=== PATIENT | female | born 1965 | race Caucasian/White ===

== ENCOUNTER 2022-03-16 10:18 | Outpatient (REF) | payer OTHER, SELFPAY ==
[2022-03-16 11:11] LABS: COVID-19 Test Negative (Negative); IDNOW Serial# 08D9AD1C
== END 2022-03-16 10:19 | disposition home or self-care (01) ==
LOC: HO.LAB 10:18
PROVIDERS: Visit Provider Internal Medicine
DX: Z20.822 Contact with and (suspected) exposure to COVID-19 (principal)
CPT/HCPCS: 87635; C9803

== ENCOUNTER 2024-06-25 15:30 | Outpatient (REF) | payer OTHER, SELFPAY ==
[2024-06-25 17:43] LABS: Free T4 (Free Thyroxine) 1.13 ng/dL (0.71-1.85); Thyroid Stimulating Hormone 0.34 uIU/mL (0.32-4.0)
[2024-06-27 00:44] LABS: Triiodothyronine T3 Free 3.4 pg/mL (2.3-4.2)
== END 2024-06-25 15:31 | disposition home or self-care (01) ==
LOC: HO.LAB 15:30
PROVIDERS: PCP Family Medicine; Visit Provider Internal Medicine Endocrinology, Diabetes & Metabolism
DX: E05.90 Thyrotoxicosis, unspecified without thyrotoxic crisis or storm (principal)
CPT/HCPCS: 36415; 84439; 84443; 84481

== ENCOUNTER 2024-06-25 15:30 | Outpatient (AMB) | payer OTHER, SELFPAY ==
--- NOTE | 2024-06-25 15:33 | MHC.OFFVIS ---
Vital Signs 06/25/24 15:36 Height 5 ft 10 in Weight 194 lb 14.218 oz BMI 28.0 BP 112/62 Blood Pressure Location Lt brachial Position Sitting Pulse 66 Pulse Source Pulse Oximeter Intake Visit Reasons: Hyperthyroidism-confirmed Intake Note: New patient present today for Hyperthyroidism. 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 Previously seen by myself and treated for hyperthyroidism with radioactive iodine with euthyroidism . Was seen at [facility] Currently denies any dysphagia or hoarseness of voice. Denies sensation of swelling in the neck or difficulty breathing while lying flat. Denies any tenderness in the neck. Denies any palpitations, tremors, + intentional weight loss, frequent bowel movements. Denies any ocular complaints, blurred or double vision. Denies hair loss, dry skin, heat or cold intolerance, weight gain, confusion. Has any history of head or neck irradiation. Denies any family history of thyroid cancer. Not Had biopsy of nodules in the past. Thyroid US: Had exposure to radiation for off from [place] as per PCP's note Labs: TSH of 0.237 previous TSH of 0.43. Free T4 was normal as was TRAB and TSI antibodies [facility] Medical History (Updated 06/25/24 @ 15:42 by Stephen George MD) Hyperthyroidism Family History (Updated 06/25/24 @ 15:41 by MEHUL Pichardo) Mother Clogged artery (heart) Father No problems noted. Social History (Updated 06/25/24 @ 15:42 by MEHUL Pichardo) Alcohol intake: former Patient Tobacco Use Status: Former Tobacco user Physical Exam Vital Signs: Last Vital Signs Pulse 66 06/25/24 15:36 BP 112/62 06/25/24 15:36 BMI result Body Mass Index 28.0 Const Other: Thyroid gland is somewhat nodular to palpation with the right lobe being larger than left lobe Assessment & Plan Assessment & Plan (1) Hyperthyroidism: Code(s): E05.90 - Thyrotoxicosis, unspecified without thyrotoxic crisis or storm Category: Medical Plan: This 58-year-old white female with a history of hyperthyroidism previously treated radioactive iodine now with a slightly suppressed TSH and previously seen by myself. Differential diagnosis includes 8 toxic nodule or toxic multinodular goiter Plan is to repeat TSH, free T4 and free T3. We will try to obtain records from previous visits [facility] endocrine. Depending upon about blood test if TSH is still suppressed, make an iodine 123 uptake and scan. If TSH is normal, make it thyroid ultrasound to better visualize structure considering patient was exposed to nuclear for past and is high risk for both benign and malignant nodules Orders: Orders Free T4 (Free Thyroxine) Today E05.90 - Thyrotoxicosis, unspecified without thyrotoxic crisis or storm Thyroid Stimulating Hormone Today E05.90 - Thyrotoxicosis, unspecified without thyrotoxic crisis or storm Triiodothyronine T3 Free Today E05.90 - Thyrotoxicosis, unspecified without thyrotoxic crisis or storm Coding Level of Care Code Est Pt Level 3 (76492) Diagnoses Hyperthyroidism E05.90
[2024-06-25 15:36] VITALS: BP 112/62; PULSE 66; BMI 28.0
== END 2024-06-25 16:11 | disposition home or self-care (01) ==
PROVIDERS: PCP Family Medicine; Visit Provider Internal Medicine Endocrinology, Diabetes & Metabolism
DX: E05.90 Thyrotoxicosis, unspecified without thyrotoxic crisis or storm (principal)
CPT/HCPCS: 99213

== ENCOUNTER 2024-09-04 15:54 | Outpatient (REF) | payer OTHER, SELFPAY ==
--- NOTE | ~2024-09-04 | US_ITS ---
EXAMINATION: US THYROID CLINICAL INFORMATION: Thyrotoxicosis, unspecified without thyrotoxic crisis or storm. Patient at high risk due to prior nuclear exposure, prior history of hyperthyroidism. COMPARISON: None available. TECHNIQUE: Linear transducer grayscale and color Doppler examination with attention to the region of the thyroid. FINDINGS: SIZE: Measurements of the thyroid lobes and nodules are given in sagittal, anteroposterior and transverse dimensions, respectively. Right Thyroid Lobe: 6.2 x 1.9 x 1.6 cm, volume 9.8 mL. Parenchyma: The gland echotexture is homogeneous. Thyroid vascularity is normal. Left Thyroid Lobe: 5.5 x 1.9 x 2.1 cm, volume 11.5 mL. Parenchyma: The gland echotexture is homogeneous. Thyroid vascularity is normal. Isthmus: 1.0 cm in maximum AP dimension. Estimated total number of nodules greater than or equal to 1 cm: 0. 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 Location: Right inferior. Size: 0.2 x 0.1 x 0.2 cm, volume 0.002 mL. Nodule characteristics: Composition: Solid (2). Echogenicity: Hyperechoic (1). Shape: Not taller than wide (0). Margins: Ill-defined (0). Echogenic Foci: Punctate echogenic foci (3). ACR TI-RADS total points: 6. ACR TI-RADS category: 4. NODES: No lymphadenopathy is seen in the tissue surrounding the thyroid gland. US/US thyroid IMPRESSION: Normal study aside from one small 2 mm sized hyperechoic/calcified lesion. No follow-up is needed. ACR TI-RADS RECOMMENDATION REFERENCE: Ultrasound-guided fine-needle aspiration, followup ultrasound, no further follow up. * TR1 (0 point) and TR2 (2 points): No FNA or follow up. * TR3 (3 points): FNA if more than or equal to 2.5 cm in maximum dimension, followup ultrasound in 1, 3 and 5 years if 1.5 to 2.4 cm in maximum dimension. * TR4 (4-6 points): FNA if more than or equal to 1.5 cm in maximum dimension, followup ultrasound in 1, 2, 3 and 5 years if 1 to 1.4 cm in maximum dimension. * TR5 (more than or equal to 7 points): FNA if more than or equal to 1 cm in maximum dimension, followup ultrasound every year for 5 years if 0.5 to 0.9 cm in maximum dimension. * TR3, TR4 or TR5 nodules that are below the size threshold for followup receive no follow up. Electronically signed by: Ronny Levin MD 10/31/2024 12:02 AM WILMER ROSAS
== END 2024-09-04 15:55 | disposition home or self-care (01) ==
LOC: HO.US 15:54
PROVIDERS: PCP Family Medicine; Visit Provider Nurse Practitioner Adult Health
DX: E05.90 Thyrotoxicosis, unspecified without thyrotoxic crisis or storm (principal)
CPT/HCPCS: 76536

== ENCOUNTER 2024-09-24 15:28 | Outpatient (AMB) | payer OTHER, SELFPAY ==
[2024-09-24 15:32] VITALS: BP 108/60; PULSE 70; BMI 27.2
--- NOTE | 2024-09-24 15:32 | MHC.OFFVIS ---
Vital Signs 09/24/24 15:32 Height 5 ft 10 in Weight 189 lb 13.088 oz BMI 27.2 BP 108/60 Blood Pressure Location Lt brachial Position Sitting Pulse 70 Pulse Source Pulse Oximeter Intake Visit Reasons: f/u hyperthyroidism Intake Note: Patient present today for hyperthyroidism follow up visit. 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 Previously seen by myself and treated for hyperthyroidism with radioactive iodine with euthyroidism . Was seen at [facility] Currently denies any dysphagia or hoarseness of voice. Denies sensation of swelling in the neck or difficulty breathing while lying flat. Denies any tenderness in the neck. Denies any palpitations, tremors, + intentional weight loss, frequent bowel movements. Denies any ocular complaints, blurred or double vision. Denies hair loss, dry skin, heat or cold intolerance, weight gain, confusion. Has any history of head or neck irradiation. Denies any family history of thyroid cancer. Not Had biopsy of nodules in the past. Thyroid US: Had exposure to radiation for off from [place] as per PCP's note Labs: TSH of 0.237 previous TSH of 0.43. Free T4 was normal as was TRAB and TSI antibodies Repeat TSH is normalized PFS Medical History (Updated 06/25/24 @ 15:42 by Stephen George MD) Hyperthyroidism Family History (Updated 06/25/24 @ 15:41 by MEHUL Pichardo) Mother Clogged artery (heart) Father No problems noted. Social History (Updated 06/25/24 @ 15:42 by MEHUL Pichardo) Alcohol intake: former Patient Tobacco Use Status: Former Tobacco user Physical Exam Const Other: Thyroid gland is somewhat nodular to palpation with the right lobe being larger than left lobe Assessment & Plan Assessment & Plan (1) Hyperthyroidism: Code(s): E05.90 - Thyrotoxicosis, unspecified without thyrotoxic crisis or storm Category: Medical Plan: This 58-year-old white female with a history of hyperthyroidism previously treated radioactive iodine. Appears to be clinically and biochemically euthyroid. Repeat thyroid ultrasound is pending Plan is to await results of thyroid ultrasound. Will have patient follow-up with Dr. Boone an cigarette paper tester in our practice who specialized in thyroid ultrasound/biopsy. Coding Level of Care Code Est Pt Level 3 (73593) Diagnoses Hyperthyroidism E05.90
== END 2024-09-24 15:45 | disposition home or self-care (01) ==
PROVIDERS: PCP Family Medicine; Visit Provider Internal Medicine Endocrinology, Diabetes & Metabolism
DX: E05.90 Thyrotoxicosis, unspecified without thyrotoxic crisis or storm (principal)
CPT/HCPCS: 99213

== ENCOUNTER → 2024-09-24 15:28 | Outpatient (BNVA) | payer OTHER, SELFPAY | PROVIDERS: PCP Family Medicine; Visit Provider Internal Medicine Endocrinology, Diabetes & Metabolism ==

== ENCOUNTER 2024-11-05 15:01 | Outpatient (AMB) | payer OTHER, SELFPAY ==
--- NOTE | 2024-11-05 15:03 | MHC.OFFVIS ---
Vital Signs 11/05/24 15:04 Height 5 ft 10 in Weight 190 lb 4.143 oz BMI 27.3 BP 112/66 Blood Pressure Location Lt brachial Position Sitting Pulse 64 Pulse Source Pulse Oximeter Intake Visit Reasons: f/u MNG-confirmed Intake Note: Patient present today for MNG follow up visit. 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 Currently denies any dysphagia or hoarseness of voice. Denies sensation of swelling in the neck or difficulty breathing while lying flat. Denies any tenderness in the neck. Denies any palpitations, tremors, + intentional weight loss, frequent bowel movements. Denies any ocular complaints, blurred or double vision. Denies hair loss, dry skin, heat or cold intolerance, weight gain, confusion. has history of head or neck irradiation. Denies any family history of thyroid cancer. Not Had biopsy of nodules in the past. Had exposure to radiation for off from [place] as per PCP's note normal as was TRAB and TSI antibodies Most recent labs 06/25/2020 showed function. Ultrasound thyroid identified a 2 mm calcified lesion in the right inferior lobe, does not meet criteria follow up. Physical exam General: sitting comfortably in no acute distress HEENT: normocephalic/atraumatic Neck: supple, symmetrical, no thyromegaly Cardiac: normal heart sounds Pulm: normal breath sounds B/L, no added breath sounds Abd: not distended, no tenderness Extremities: no edema, no signs of myxedema Neuro: AAO x3, Speech: normal, no facial droop, moving all 4 extremities Laboratory Tests 06/25/24 16:22 TSH 0.34 Free T4 1.13 Free T3 3.4 US THYROID 09/04/24 CLINICAL INFORMATION: Thyrotoxicosis, unspecified without thyrotoxic crisis or storm. Patient at high risk due to prior nuclear exposure, prior history of hyperthyroidism. COMPARISON: None available. TECHNIQUE: Linear transducer grayscale and color Doppler examination with attention to the region of the thyroid. FINDINGS: SIZE: Measurements of the thyroid lobes and nodules are given in sagittal, anteroposterior and transverse dimensions, respectively. Right Thyroid Lobe: 6.2 x 1.9 x 1.6 cm, volume 9.8 mL. Parenchyma: The gland echotexture is homogeneous. Thyroid vascularity is normal. Left Thyroid Lobe: 5.5 x 1.9 x 2.1 cm, volume 11.5 mL. Parenchyma: The gland echotexture is homogeneous. Thyroid vascularity is normal. Isthmus: 1.0 cm in maximum AP dimension. Estimated total number of nodules greater than or equal to 1 cm: 0. 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 Location: Right inferior. Size: 0.2 x 0.1 x 0.2 cm, volume 0.002 mL. Nodule characteristics: Composition: Solid (2). Echogenicity: Hyperechoic (1). Shape: Not taller than wide (0). Margins: Ill-defined (0). Echogenic Foci: Punctate echogenic foci (3). ACR TI-RADS total points: 6. ACR TI-RADS category: 4. NODES: No lymphadenopathy is seen in the tissue surrounding the thyroid gland. US/US thyroid IMPRESSION: Normal study aside from one small 2 mm sized hyperechoic/calcified lesion. No follow-up is needed. [facility] Medical History (Updated 06/25/24 @ 15:42 by Stephen George MD) Hyperthyroidism Family History Mother Clogged artery (heart) Father No problems noted. Social History Alcohol intake: former Patient Tobacco Use Status: Former Tobacco user Physical Exam Vital Signs: Last Vital Signs Pulse 64 11/05/24 15:04 BP 112/66 11/05/24 15:04 BMI result Body Mass Index 27.3 Assessment & Plan Assessment & Plan (1) Hyperthyroidism: Code(s): E05.90 - Thyrotoxicosis, unspecified without thyrotoxic crisis or storm Category: Medical Plan: This 59-year-old female with a history of hyperthyroidism previously treated radioactive iodine in 1999. Appears to be clinically and biochemically euthyroid. At this point I will discharge her back to her primary care physician. She can have thyroid blood work once a year a done with her primary care physician. I counseled about symptoms hypothyroidism and hyperthyroidism and if she has those to get blood work done sooner. She also has exposure to [place], underwent thyroid ultrasound in September 2024 which only showed a 2 mm calcified nodule that does not require follow up. I counseled her about compressive symptoms and that if she has any clinical changes, she can be referred back to us for repeat thyroid ultrasound. Patient verbalized understanding and was appreciative of the detailed explanation. Plan See above Coding Level of Care Code Est Pt Level 3 (89060) Diagnoses Hyperthyroidism E05.90
[2024-11-05 15:04] VITALS: BP 112/66; PULSE 64; BMI 27.3
--- OUTSIDE RECORDS SUMMARY | 2024-11-11 04:14 | XMS_ITS | Data Portability ---
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 Despite these efforts, she continues to experience weight fluctuations, ranging from overweight to obese, and has comorbidities including hypertension and hyperlipidemia. She has a history of major depression, which is currently in remission, and had a positive response to bupropion in the past. Additionally, she is a former smoker. During our consultation, we discussed various treatment options to support her weight loss goals. Given her successful history with bupropion and the absence of a history of seizures, I have decided to reintroduce bupropion. Furthermore, to enhance weight loss efforts, I plan to combine bupropion with naltrexone, prescribed separately rather than as the combination drug Contrave. This decision is due to ongoing insurance coverage issues and thus we will be pursing it by means of prescribing it off-label, with the patient fully aware and accepting the associated risks. We reviewed the risks of a lowered seizure threshold associated with bupropion, and the increased risk of seizures when combined with alcohol or cocamitant use of other lowering seizure threshold substances. She is informed about the importance of avoiding alcohol, especially since naltrexone also serves as an alcohol deterrent. We recently conducted lab tests, and her liver function tests (LFTs) were reassuring. Therefore, I will proceed with this regimen and monitor her progress with plans to repeat LFT in the future once she is stable on treatment. In addition to pharmacological interventions, I continue to emphasize the importance of lifestyle adjustments, including adopting a healthy diet with portion control and a Mediterranean diet, as well as maintaining regular exercise habits. The patient will be scheduled for a follow-up appointment in approximately six weeks to assess her response to the treatment. I advised her to monitor her weight weekly. In our follow-up, if she tolerates the current regimen well, I may consider increasing her dose of bupropion to 300 mg and adjusting the dose of naltrexone as needed. Regarding her thyroid, given her history of what appears to be hyperthyroidism treated with radioactive iodine, potential exposure to radiation at [place], and recent changes in thyroid function, I am opting for a proactive approach. I have ordered additional thyroid tests, which she is will undergo as soon as possible. We may consider to repeat these tests in 2 to 3 months if it continues to be deranged. If her thyroid levels continue to be abnormal, we will consider conducting a thyroid uptake scan and referring her back to endo. Given her potential radiation exposure, it is prudent to proceed sooner rather than later if her lab results remain concerning. I have spent 45 minutes on this encounter. The time documented represents time spent on the day of the encounter preparing for and completing the visit. Time spent performing a physical exam, obtaining history from the patient, counseling/educati ng the patient in possible diagnosis and treatment options. This time is independent of any additional procedures/diagnos tic testing/interpreta tions. This service was provided using telemedicine. Patient consented to video & audio visit Patient was located in the [facility]. Provider was located in the office. No other persons participated in the telemedicine visit except for the patient unless otherwise indicated here. {{}} Total time of visit was 40 minutes. [email or web address] Not available 04/22/2024 06:37:37 Plan of Treatment Reminders Order Date Submit Date Provider Last Modified By Organization Details Last Modified Time Details Appointments PE EST 2024 03:30P M Sanju Son MD Not available Not available Not available Lab lipjason parsonse l, seru m 2022 023 [facility], [address] [place], [address], 02/27/2023 11:44:40 TSH, seru m or plas ma 2022 023 [facility], [address] [place], [address], 02/27/2023 08:55:47 CBC w/ auto diff 2022 023 [facility], [address] [place], [address], 02/27/2023 10:24:03 CMP, seru m or plas ma 2022 023 [facility], [address] [place], [address], 02/27/2023 11:44:37 thyr oid rachel l, seru m 2022 023 [facility], [address] [place], [address], 02/27/2023 11:49:48 CBC w/ auto diff 2022 023 [facility], [address] [place], [address], 04/04/2023 11:47:04 lipi d jaquelinee l, seru m 2023 024 [facility], [address], [place], [address], 04/19/2024 08:07:02 CMP, seru m or plas ma 2023 024 [facility], [address], [place], [address], 04/19/2024 08:07:00 CBC w/ auto diff 2023 024 [facility], [address] [facility] [address], [place], [address], 04/19/2024 08:07:01 TSH + free T4, seru m 2023 024 [facility], [address] [facility], [address] [address], [place], [address], 04/19/2024 08:07:00 TSH + free T4, seru m 2023 024 [facility], [address] [facility], [address] [address], [place], [address], 05/20/2024 22:06:00 T3, free , seru m or plas ma 2023 024 [facility], [address] [facility], [address] [address], [place], [address], 05/20/2024 22:06:05 thyr otro pin rece ptor Ab, seru m 2023 024 [facility], [address] [facility], [address] [address], [place], [address], 05/20/2024 22:06:03 thyr oglo buli n + thyr oglo buli n Ab, seru m 2023 024 [facility], [address] [facility], [address] [address], [place], [address], 05/20/2024 22:06:02 thyr oid ld xida se (tpo ) Ab, seru m 2023 024 [facility], [address] [facility], [address] [address], [place], [address], 05/20/2024 22:06:04 tsi (thy roid -sti manfred ting immu nogl obul in), seru m 2023 024 [facility], [address], [place], [address], 05/20/2024 22:06:03 path olog y revi ew, smea r 2023 024 [facility], [address], [place], [address], 05/20/2024 22:06:01 Referral anita roen tero logi st refe rral - Esta blis hed with [facility] Need s colo n canc er scre enin g, Due 09/04 024 [facility], [address], [place], [address], 02/20/2024 10:26:51 nutr itio nist / aftab an refe rral 2023 024 [email or web address] Not available 04/22/2024 09:01:33 nutr itio nist / aftab an refe rral 2023 024 [email or web address] Not available 09/18/2024 15:27:43 Procedures colo nosc opy scre enin g (PRO C) - Due 09/04 024 [id number] In-Office Order, Internal Use Only DO Not Attach Compendium DO Not Attach Compendium, Do Not Delete/merge, [id number] 02/20/2024 10:22:20 Surgeries None jaxon rded . Imaging None jaxon rded . Medication Orders Xiid ra 5 % eye drop s in a drop maxwell tte 2022 023 [facility] [place], [address] [facility], [place], [address], 02/19/2024 14:00:45 tyra pent in 100 mg caps ule 2022 023 [facility] - [place], [place], [address], [place], [address], 02/19/2024 14:00:16 bupr opio n HCl XL 150 mg 24 hr tabl et, exte nded rele ase 2023 024 [facility] - [place], [address] [place], [address], 04/24/2024 12:26:55 nalt rexo ne 50 mg tabl et 2023 024 [facility] [place], [address] [place], [address], 05/20/2024 16:53:11 comp ound ed medi luzma on 2023 024 [facility], [address] [place] [address], [address], 09/18/2024 14:29:48 Patient TargetsNo targets recorded. Patient Instructions Encounter Date Encounter Id Patient Instructions Last Modified By Organization Details Last Modified Time 01/02/2023 [id number] well visit, wome n 50 to 65: care instructions [email or web address] Not available 01/02/2023 14:32:18 high cholesterol : care instructions [email or web address] Not available 01/02/2023 14:32:18 04/04/2023 [id number] shingles: care instructions pmadden Not available 04/04/2023 09:45:47 take gabapentin at night x 3 nights, then twice daily x 3 days, then 3 times daily pmadden Not available 04/04/2023 09:42:05 Medications (OTC , herbal therapies, supplements) reviewed and reconciled with patient and or caregiver, including potential side effects, drug interactions, instructions, and the consequences of not taking medication. Reviewed potential barriers to medication adherence, such as side effects from medication or cost of medication. [email or web address] Not available 04/04/2023 09:42:49 02/19/2024 [id number] well visit, wome n 50 to 65: care instructions [email or web address] Not available 02/19/2024 14:37:00 high cholesterol : care instructions [email or web address] Not available 02/19/2024 14:37:00 learning about healthy weight ckokar Not available 02/19/2024 14:37:01 learning about colon cancer ckokar Not available 02/19/2024 14:37:00 04/21/2024 [id number] When You Want to Lose Weight: Care Instructions [email or web address] Not available 04/22/2024 06:37:41 When You Want to Lose Weight: Care Instructions [email or web address] Not available 04/22/2024 06:37:41 Nutrition Referral and Weight Management Follow-up Information ckokar Not available 04/22/2024 06:37:41 09/18/2024 [id number] hemorrhoids: car e instructions [email or web address] Not available 09/18/2024 14:28:24 When You Want to Lose Weight: Care Instructions ckokar Not available 09/18/2024 14:28:24 When You Want to Lose Weight: Care Instructions [email or web address] Not available 09/18/2024 14:28:24 Nutrition Referral and Weight Management Follow-up Information [email or web address] Not available 09/18/2024 14:28:24 Reason for Referral Epic Beacon Analyst Referral for Screening for malignant neoplasm of colon Established with [facility] Needs colon cancer screening, Due 09/04/24 Referring Physician: [facility], Encounter Date: 02/19/2024 Plumbing Designer/dietitian Refer ral for Body mass index 25-29 - overweight Referring Physician: Sanju Son [facility], Encounter Date: 04/21/2024 Plumbing Designer/dietitian Refer ral for Body mass index 25-29 - overweight Referring Physician: Sanju Son [facility], Encounter Date: 09/18/2024 Results Created Date Observation Date Name Description Value Unit Range Abnormal Flag Note LastModifiedBy Organization Detail LastModifiedTime 02/28/2002/27/2023 TSH WITH REFLE X TO FT4 results Dupli josr order cance lled via inter face Not Available [facility] [address] [place], [address], 02/27/2023 08:55:47 02/28/20 23 02/27/2023 COMPL ETE CBC WITH DIFF WBC 2.9 K/mm3 (4.0-1 1.0) low Not Available [facility] [address] [place], [address], 02/27/2023 10:24:03 02/28/20 23 02/27/2023 COMPL ETE CBC WITH DIFF RBC 4.55 M/mm3 (4.20- 5.40) Not Available [facility] [address] [place], [address], 02/27/2023 10:24:03 02/28/20 23 02/27/2023 COMPL ETE CBC WITH DIFF HGB 13.5 gm/dL (11.7- 15.5) Not Available [facility] [address] [place], [address], 02/27/2023 10:24:03 02/28/20 23 02/27/2023 COMPL ETE CBC WITH DIFF HCT 40.6 % (35.7- 45.8) Not Available [facility] [address] [place], [address], 02/27/2023 10:24:03 02/28/20 23 02/27/2023 COMPL ETE CBC WITH DIFF MCV 89.2 fL (80.0- 100.0) Not Available [facility] [address] [place], [address], 02/27/2023 10:24:03 02/28/20 23 02/27/2023 COMPL ETE CBC WITH DIFF MCH 29.7 pg (27.0- 34.0) Not Available [facility] [address] [place], [address], 02/27/2023 10:24:03 02/28/20 23 02/27/2023 COMPL ETE CBC WITH DIFF MCHC 33.3 g/dL (33.0- 37.0) Not Available [facility] [address] [place], [address], 02/27/2023 10:24:03 02/28/20 23 02/27/2023 COMPL ETE CBC WITH DIFF plt 191 K/mm3 (150-4 60) Not Available [facility] [address] [place], [address], 02/27/2023 10:24:03 02/28/20 23 02/27/2023 COMPL ETE CBC WITH DIFF RDW-SD 39.0 fL (<47.0 ) Not Available [facility] [address] [place], [address], 02/27/2023 10:24:03 02/28/20 23 02/27/2023 COMPL ETE CBC WITH DIFF MPV 9.8 fL (9.4-1 2.4) Not Available [facility] [address] [place], [address], 02/27/2023 10:24:03 02/28/20 23 02/27/2023 COMPL ETE CBC WITH DIFF automated NRBC 0.0 #/100 _WBC' s Not Available [facility] [address] [place], [address], 02/27/2023 10:24:03 02/28/20 23 02/27/2023 COMPL ETE CBC WITH DIFF abs. NRBC 0.0 K/mm3 Not Available [facility] [address] [place], [address], 02/27/2023 10:24:03 02/28/20 23 02/27/2023 COMPL ETE CBC WITH DIFF neut # 1.4 K/mm3 (1.3-7 .0) Not Available [facility] [address] [place], [address], 02/27/2023 10:24:03 02/28/20 23 02/27/2023 COMPL ETE CBC WITH DIFF lymph # 1.2 K/mm3 (0.8-3 .1) Not Available [facility] [address] [place], [address], 02/27/2023 10:24:03 02/28/20 23 02/27/2023 COMPL ETE CBC WITH DIFF mono# 0.3 K/mm3 (0.4-0 .9) low Not Available [facility] [address] [place], [address], 02/27/2023 10:24:03 02/28/20 23 02/27/2023 COMPL ETE CBC WITH DIFF eo # 0.1 K/mm3 (0.0-0 .4) Not Available [facility] [address] [place], [address], 02/27/2023 10:24:03 02/28/20 23 02/27/2023 COMPL ETE CBC WITH DIFF baso # 0.0 K/mm3 (0.0-0 .1) Not Available [facility] [address] [place], [address], 02/27/2023 10:24:03 02/28/20 23 02/27/2023 COMPL ETE CBC WITH DIFF abs. imm gran 0.0 K/mm3 Not Available [facility] [address] [place], [address], 02/27/2023 10:24:03 02/28/20 23 02/27/2023 COMPL ETE CBC WITH DIFF neut 46.3 % (44-76 ) Not Available [facility] [address] [place], [address], 02/27/2023 10:24:03 02/28/20 23 02/27/2023 COMPL ETE CBC WITH DIFF lymph 41.5 % (15-43 ) Not Available [facility] [address] [place], [address], 02/27/2023 10:24:03 02/28/20 23 02/27/2023 COMPL ETE CBC WITH DIFF monocyte 8.8 % (4.5-1 0.5) Not Available [facility] [address] [place], [address], 02/27/2023 10:24:03 02/28/20 23 02/27/2023 COMPL ETE CBC WITH DIFF eo 2.4 % (0-6) Not Available [facility] [address] [place], [address], 02/27/2023 10:24:03 02/28/20 23 02/27/2023 COMPL ETE CBC WITH DIFF baso 0.7 % (0-2) Not Available [facility] [address] [place], [address], 02/27/2023 10:24:03 02/28/20 23 02/27/2023 COMPL ETE CBC WITH DIFF imm gran 0.3 % Not Available [facility] [address] [place], [address], 02/27/2023 10:24:03 02/28/20 23 02/27/2023 UA W/REF WILLIAN CULTU RE appear/color YELLO W CLEAR Not Available [facility] [address] [place], [address], 02/27/2023 11:28:41 02/28/20 23 02/27/2023 UA W/REF WILLIAN CULTU RE sp. gravity 1.025 (1.002 -1.030 ) Not Available [facility] [address] [place], [address], 02/27/2023 11:28:41 02/28/20 23 02/27/2023 UA W/REF WILLIAN CULTU RE urine pH 5.5 (5.0-8 .0) Not Available [facility] [address] [place], [address], 02/27/2023 11:28:41 02/28/20 23 02/27/2023 UA W/REF WILLIAN CULTU RE urine albumin TRACE (neg) abnormal Not Available [facility] [address] [place], [address], 02/27/2023 11:28:41 02/28/20 23 02/27/2023 UA W/REF WILLIAN CULTU RE urine glucose NEGATI VE (neg) Not Available [facility] [address] [place], [address], 02/27/2023 11:28:41 02/28/20 23 02/27/2023 UA W/REF WILLIAN CULTU RE urine ketones NEGATI VE (neg) Not Available [facility] [address] [place], [address], 02/27/2023 11:28:41 02/28/20 23 02/27/2023 UA W/REF WILLIAN CULTU RE urine bilirubin NEGATI VE (neg) Not Available [facility] [address] [place], [address], 02/27/2023 11:28:41 02/28/20 23 02/27/2023 UA W/REF WILLIAN CULTU RE urine hemoglobin NEGATI VE (neg) Not Available [facility] [address] [place], [address], 02/27/2023 11:28:41 02/28/20 23 02/27/2023 UA W/REF WILLIAN CULTU RE urine nitrite NEGATI VE (neg) Not Available [facility] [address] [place], [address], 02/27/2023 11:28:41 02/28/20 23 02/27/2023 UA W/REF WILLIAN CULTU RE urine leukocyte NEGATI VE (neg) Not Available [facility] [address] [place], [address], 02/27/2023 11:28:41 02/28/20 23 02/27/2023 UA W/REF WILLIAN CULTU RE urobilinogen NORMAL mg/dL (norm) Not Available [facility] [address] [place], [address], 02/27/2023 11:28:41 02/28/20 23 02/27/2023 UA W/REF WILLIAN CULTU RE urine WBCs 1 /hpf (0-5) Not Available [facility] [address] [place], [address], 02/27/2023 11:28:41 02/28/20 23 02/27/2023 UA W/REF WILLIAN CULTU RE urine RBCs 1 /hpf (0-3) Not Available [facility] [address] [place], [address], 02/27/2023 11:28:41 02/28/20 23 02/27/2023 UA W/REF WILLIAN CULTU RE bacteria SLIGHT hpf (neg) abnormal Not Available [facility] [address], [address], 02/27/2023 11:28:41 02/28/20 23 02/27/2023 UA W/REF WILLIAN CULTU RE mucus MODERA TE /lpf Not Available [facility] [address] [place], [address], 02/27/2023 11:28:41 02/28/20 23 02/27/2023 UA W/REF WILLIAN CULTU RE squamous epith <1 /hpf (0-8) Not Available [facility] [address] [place], [address], 02/27/2023 11:28:41 02/28/20 23 02/27/2023 UA W/REF WILLIAN CULTU RE clarity CLEAR (clear ) Not Available [facility] [address] [place], [address], 02/27/2023 11:28:41 02/28/20 23 02/27/2023 UA W/REF WILLIAN CULTU RE culture indication CULTUR E NOT INDICA ELVA Not Available [facility] [address] [place], [address], 02/27/2023 11:28:41 02/28/20 23 02/27/2023 COMPR EHENS RIGO METAB OLIC PANL glucose 106 mg/dL (70-99 ) high Not Available [facility] [address] [place], [address], 02/27/2023 11:44:37 02/28/20 23 02/27/2023 COMPR EHENS RIGO METAB OLIC PANL BUN 14 mg/dL (6-20) Not Available [facility] [address] [place], [address], 02/27/2023 11:44:37 02/28/20 23 02/27/2023 COMPR EHENS RIGO METAB OLIC PANL creatinine 1.1 mg/dL (0.5-1 .0) high Not Available [facility] [address] [place], [address], 02/27/2023 11:44:37 02/28/20 23 02/27/2023 COMPR EHENS RIGO METAB OLIC PANL sodium 140 mmol/ L (133-1 45) Not Available [facility] [address] [place], [address], 02/27/2023 11:44:37 02/28/20 23 02/27/2023 COMPR EHENS RIGO METAB OLIC PANL potassium 4.2 mmol/ L (3.6-5 .2) Not Available [facility] [address] [place], [address], 02/27/2023 11:44:37 02/28/20 23 02/27/2023 COMPR EHENS RIGO METAB OLIC PANL chloride 104 mmol/ L (98-10 7) Not Available [facility] [address] [place], [address], 02/27/2023 11:44:37 02/28/20 23 02/27/2023 COMPR EHENS RIGO METAB OLIC PANL bicarbonate 26 mmol/ L (22-29 ) Not Available [facility] [address] [place], [address], 02/27/2023 11:44:37 02/28/20 23 02/27/2023 COMPR EHENS RIGO METAB OLIC PANL anion gap 10 (4-17) Not Available [facility] [address] [place], [address], 02/27/2023 11:44:37 02/28/20 23 02/27/2023 COMPR EHENS RIGO METAB OLIC PANL albumin 4.8 gm/dL (3.4-4 .8) Not Available [facility] [address] [place], [address], 02/27/2023 11:44:37 02/28/20 23 02/27/2023 COMPR EHENS RIGO METAB OLIC PANL calcium 9.5 mg/dL (8.6-1 0.5) Not Available [facility] [address] [place], [address], 02/27/2023 11:44:37 02/28/20 23 02/27/2023 COMPR EHENS RIGO METAB OLIC PANL bilirubin,to bhumika 0.5 mg/dL (0-1.2 ) Not Available [facility] [address] [place], [address], 02/27/2023 11:44:37 02/28/20 23 02/27/2023 COMPR EHENS RIGO METAB OLIC PANL total protein 7.3 gm/dL (6.2-8 .2) Not Available [facility] [address] [place], [address], 02/27/2023 11:44:37 02/28/20 23 02/27/2023 COMPR EHENS RIGO METAB OLIC PANL Ag ratio 1.9 Not Available [facility] [address] [place], [address], 02/27/2023 11:44:37 02/28/20 23 02/27/2023 COMPR EHENS RIGO METAB OLIC PANL AST 25 U/L (0-32) Not Available [facility] [address] [place], [address], 02/27/2023 11:44:37 02/28/20 23 02/27/2023 COMPR EHENS RIGO METAB OLIC PANL alk phos 75 U/L (35-10 4) Not Available [facility] [address] [place], [address], 02/27/2023 11:44:37 02/28/20 23 02/27/2023 COMPR EHENS RIGO METAB OLIC PANL ALT 23 U/L (0-33) Not Available [facility] [address] [place], [address], 02/27/2023 11:44:37 02/28/20 23 02/27/2023 COMPR EHENS RIGO METAB OLIC PANL estimated GFR creatinine 60 mL/mi n/1.7 3_M2 Creat inine based estim ated glome rular filtr ation (eGFR ) in adult s is calcu lated using the Natio nal Kidne y Found ation recom artie d 2020 CKD-E PI equat ion. Estim ates GFR from serum creat inine , age and sex. Not Available [facility] [address] [place], [address], 02/27/2023 11:44:37 02/28/20 23 02/27/2023 LIPID PANEL cholesterol, total 161 mg/dL (<200) Not Available [facility] [address] [place], [address], 02/27/2023 11:44:40 02/28/20 23 02/27/2023 LIPID PANEL triglyceride 208 mg/dL (<150) high Not Available [facility] [address] [place], [address], 02/27/2023 11:44:40 02/28/20 23 02/27/2023 LIPID PANEL HDL chol 46 mg/dL (>39) Not Available [facility] [address] [place], [address], 02/27/2023 11:44:40 02/28/20 23 02/27/2023 LIPID PANEL LDL cholesterol, calculated 73 mg/dL (0-130 ) Not Available [facility] [address] [place], [address], 02/27/2023 11:44:40 02/28/20 23 02/27/2023 LIPID PANEL non HDL cholesterol (calc) 115 mg/dL (<160) Not Available [facility] [address] [place], [address], 02/27/2023 11:44:40 02/28/20 23 02/27/2023 THYRO ID PANEL free T4 1.34 NG/dL (0.70- 1.80) Not Available [facility] [address] [place], [address], 02/27/2023 11:49:48 02/28/20 23 02/27/2023 THYRO ID PANEL TSH 0.71 uIU/m L (0.4-4 .2) Not Available [facility] [address] [place], [address], 02/27/2023 11:49:48 02/28/20 23 02/27/2023 HEMOG LOBIN A1C hemoglobin A1C 5.6 % (4.0-5 .6) MONIT ORING : In known diabe tic patie nts, hemog lobin A1c targe ts shoul d be discu ssed with healt h care provi young. DIAGN OSTIC USE: The Ameri can Diabe tia Assoc iatio n (ADA) and the World Healt h Organ izati on (WHO) recom mend the use of HbA1c to diagn ose diabe tia using a thres hold of 6.5%. Patie nts who have an HbA1c betwe en 5.7% and 6.4% are consi dered at incre ased risk for devel oping diabe tia in the futur e. CAUTI ON: False ly low HbA1c resul ts may be obser je in patie nts with hemol ytic anemi a, homoz ygous forms of abnor mal hemog lobin (e.g. SS, CC, SC), pregn rebecca, recen t blood loss or hemog lobin F great er than 7%. Fruct osami ne may be used as an alter antolin test in these cases . REFER ENCE: ADA: Stand ards of Medic al Care in Diabe tia 2019, The Journ al of Clini giuliano and Appli ed Resea rch and Educa tion Volum e 43, Suppl ement 1 Not Available [facility] [address] [place], [address], 02/27/2023 14:34:08 02/28/20 23 02/27/2023 COMPL EMENT C3 complement C3 125 mg/dL (90-18 0) Not Available [facility] [address] [place], [address], 02/27/2023 14:35:25 02/28/20 23 02/27/2023 COMPL EMENT C4 complement C4 24 mg/dL (10-40 ) Not Available [facility] [address] [place], [address], 02/27/2023 14:35:26 02/28/20 23 03/01/2023 ANTI- NUCLE AR ANTIB HECTOR SCREE N anti-nuclear antibody screen NEGATI VE (NOTE ) Negat rigo <1:80 Borde rline 1:80 Posit rigo >1:80 ICAP nomen clatu re: AC-0 For more infor meño n about Hep-2 cell patte rns use [facility] [email or web address] , the offic ial laurie te for the Inter natio nal Conse nsus on Antin uclea r Antib hector (YINKA) Patte rns (ICAP ). Test perfo rmed by [facility], [address], [place] [address] Not Available [facility] [address] [place], [address], 03/01/2023 23:06:25 04/04/20 23 04/04/2023 COMPL ETE CBC WITH DIFF WBC 3.7 K/mm3 (4.0-1 1.0) low Not Available [facility] [address] [place], [address], 04/04/2023 11:47:04 04/04/20 23 04/04/2023 COMPL ETE CBC WITH DIFF RBC 4.60 M/mm3 (4.20- 5.40) Not Available [facility] [address] [place], [address], 04/04/2023 11:47:04 04/04/20 23 04/04/2023 COMPL ETE CBC WITH DIFF HGB 13.9 gm/dL (11.7- 15.5) Not Available [facility] [address] [place], [address], 04/04/2023 11:47:04 04/04/20 23 04/04/2023 COMPL ETE CBC WITH DIFF HCT 41.3 % (35.7- 45.8) Not Available [facility] [address] [place], [address], 04/04/2023 11:47:04 04/04/20 23 04/04/2023 COMPL ETE CBC WITH DIFF MCV 89.8 fL (80.0- 100.0) Not Available [facility] [address] [place], [address], 04/04/2023 11:47:04 04/04/20 23 04/04/2023 COMPL ETE CBC WITH DIFF MCH 30.2 pg (27.0- 34.0) Not Available [facility] [address], [address], 04/04/2023 11:47:04 04/04/20 23 04/04/2023 COMPL ETE CBC WITH DIFF MCHC 33.7 g/dL (33.0- 37.0) Not Available [facility] [address], [address], 04/04/2023 11:47:04 04/04/20 23 04/04/2023 COMPL ETE CBC WITH DIFF plt 222 K/mm3 (150-4 60) Not Available [facility] [address] [place], [address], 04/04/2023 11:47:04 04/04/20 23 04/04/2023 COMPL ETE CBC WITH DIFF RDW-SD 38.2 fL (<47.0 ) Not Available [facility] [address] [place], [address], 04/04/2023 11:47:04 04/04/20 23 04/04/2023 COMPL ETE CBC WITH DIFF MPV 9.7 fL (9.4-1 2.4) Not Available [facility] [address] [place], [address], 04/04/2023 11:47:04 04/04/20 23 04/04/2023 COMPL ETE CBC WITH DIFF automated NRBC 0.0 #/100 _WBC' s Not Available [facility] [address] [place], [address], 04/04/2023 11:47:04 04/04/20 23 04/04/2023 COMPL ETE CBC WITH DIFF abs. NRBC 0.0 K/mm3 Not Available [facility] [address] [place], [address], 04/04/2023 11:47:04 04/04/20 23 04/04/2023 COMPL ETE CBC WITH DIFF neut # 1.8 K/mm3 (1.3-7 .0) Not Available [facility] [address], [address], 04/04/2023 11:47:04 04/04/20 23 04/04/2023 COMPL ETE CBC WITH DIFF lymph # 1.3 K/mm3 (0.8-3 .1) Not Available [facility] [address] [place], [address], 04/04/2023 11:47:04 04/04/20 23 04/04/2023 COMPL ETE CBC WITH DIFF mono# 0.4 K/mm3 (0.4-0 .9) Not Available [facility] [address], [address], 04/04/2023 11:47:04 04/04/20 23 04/04/2023 COMPL ETE CBC WITH DIFF eo # 0.1 K/mm3 (0.0-0 .4) Not Available [facility] [address] [place], [address], 04/04/2023 11:47:04 04/04/20 23 04/04/2023 COMPL ETE CBC WITH DIFF baso # 0.0 K/mm3 (0.0-0 .1) Not Available [facility] [address], [address], 04/04/2023 11:47:04 04/04/20 23 04/04/2023 COMPL ETE CBC WITH DIFF abs. imm gran 0.0 K/mm3 Not Available [facility] [address] [place], [address], 04/04/2023 11:47:04 04/04/20 23 04/04/2023 COMPL ETE CBC WITH DIFF neut 50.4 % (44-76 ) Not Available [facility] [address], [address], 04/04/2023 11:47:04 04/04/20 23 04/04/2023 COMPL ETE CBC WITH DIFF lymph 36.7 % (15-43 ) Not Available [facility] [address] [place], [address], 04/04/2023 11:47:04 04/04/20 23 04/04/2023 COMPL ETE CBC WITH DIFF monocyte 9.9 % (4.5-1 0.5) Not Available [facility] [address], [address], 04/04/2023 11:47:04 04/04/20 23 04/04/2023 COMPL ETE CBC WITH DIFF eo 2.2 % (0-6) Not Available [facility] [address] [place], [address], 04/04/2023 11:47:04 04/04/20 23 04/04/2023 COMPL ETE CBC WITH DIFF baso 0.5 % (0-2) Not Available [facility] [address] [place], [address], 04/04/2023 11:47:04 04/04/20 23 04/04/2023 COMPL ETE CBC WITH DIFF imm gran 0.3 % Not Available [facility] [address] [place], [address], 04/04/2023 11:47:04 04/04/20 23 04/04/2023 SEDIM ENTAT ION RATE, AUTOM ATED sedimentatio n rate,automat ed 5 mm/HR (0-20) Not Available [facility] [address] [place], [address], 04/04/2023 11:58:06 04/04/20 23 04/04/2023 BASIC METAB OLIC PANEL glucose 120 mg/dL (70-99 ) high Not Available [facility] [address] [place], [address], 04/04/2023 12:50:48 04/04/20 23 04/04/2023 BASIC METAB OLIC PANEL BUN 12 mg/dL (6-20) Not Available [facility] [address], [address], 04/04/2023 12:50:48 04/04/20 23 04/04/2023 BASIC METAB OLIC PANEL creatinine 1.1 mg/dL (0.5-1 .0) high Not Available [facility] [address] [place], [address], 04/04/2023 12:50:48 04/04/20 23 04/04/2023 BASIC METAB OLIC PANEL sodium 137 mmol/ L (133-1 45) Not Available [facility] [address] [place], [address], 04/04/2023 12:50:48 04/04/20 23 04/04/2023 BASIC METAB OLIC PANEL potassium 4.2 mmol/ L (3.6-5 .2) Not Available [facility] [address] [place], [address], 04/04/2023 12:50:48 04/04/20 23 04/04/2023 BASIC METAB OLIC PANEL chloride 101 mmol/ L (98-10 7) Not Available [facility] [address] [place], [address], 04/04/2023 12:50:48 04/04/20 23 04/04/2023 BASIC METAB OLIC PANEL bicarbonate 25 mmol/ L (22-29 ) Not Available [facility] [address] [place], [address], 04/04/2023 12:50:48 04/04/2004/04/2023 BASIC METAB OLIC PANEL anion gap 11 (4-17) Not Available [facility] [address] [place], [address], 04/04/2023 12:50:48 04/04/2004/04/2023 BASIC METAB OLIC PANEL calcium 9.4 mg/dL (8.6-1 0.5) Not Available [facility] [address] [place], [address], 04/04/2023 12:50:48 04/04/2004/04/2023 BASIC METAB OLIC PANEL estimated GFR creatinine 59 mL/mi n/1.7 3_M2 Creat inine based estim ated glome rular filtr ation (eGFR ) in adult s is calcu lated using the Natio nal [employer] y [employer] ation recom artie d 2020 CKD-E PI equat ion. Estim ates GFR from serum creat inine , age and sex. Not Available [facility] [address] [place], [address], 04/04/2023 12:50:48 04/04/2004/04/2023 C-PRATIBHA CTIVE PROTE IN C-reactive protein <0.3 mg/dL (0-0.5 ) Not Available [facility] [address] [place], [address], 04/04/2023 12:50:49 04/04/20 23 04/04/2023 IMMUN OFIXA TION SERUM immunoglobul in IgG 1257 mg/dL (700-1 600) Not Available [facility] [address] [place], [address], 04/10/2023 15:14:45 04/04/20 23 04/04/2023 IMMUN OFIXA TION SERUM immunoglobul in IgA 309 mg/dL (70-40 0) Not Available [facility] [address] [place], [address], 04/10/2023 15:14:45 04/04/20 23 04/04/2023 IMMUN OFIXA TION SERUM immunoglobul in IgM 205 mg/dL (40-23 0) Not Available [facility] [address] [place], [address], 04/10/2023 15:14:45 04/04/20 23 04/10/2023 IMMUN OFIXA TION SERUM immunofix Hilda l immun ofixa tion patte rn (No monoc lonal prote in detec elva) Inter prete d by Inocencio gay MD Not Available [facility] [address] [place], [address], 04/10/2023 15:14:45 04/17/20 24 04/18/2024 CMP14 (REFL EX HGB A1C) glucose 111 mg/dL 70-99 above high normal Not Available [facility] ([facility]) [address] [place], [address], 04/19/2024 08:07:00 04/17/20 24 04/18/2024 CMP14 (REFL EX HGB A1C) BUN 16 mg/dL 8-27 Not Available [facility] ([facility]) [address] [place], [address], 04/19/2024 08:07:00 04/17/20 24 04/18/2024 CMP14 (REFL EX HGB A1C) creatinine 1.07 mg/dL 0.57-1 .00 above high normal Not Available [facility] ([facility]) [address] [place], [address], 04/19/2024 08:07:00 04/17/20 24 04/18/2024 CMP14 (REFL EX HGB A1C) eGFR 59 mL/mi n/1.7 3 >59 below low normal Not Available [facility] ([facility]) [address] [place], [address], 04/19/2024 08:07:00 04/17/20 24 04/18/2024 CMP14 (REFL EX HGB A1C) BUN/creatini ne ratio 15 12-28 Not Available [facility]) [address] [place], [address], 04/19/2024 08:07:00 04/17/20 24 04/18/2024 CMP14 (REFL EX HGB A1C) sodium 137 mmol/ L 134-14 4 Not Available [facility] ([facility]) [address] [place], [address], 04/19/2024 08:07:00 04/17/20 24 04/18/2024 CMP14 (REFL EX HGB A1C) potassium 4.6 mmol/ L 3.5-5. 2 Not Available [facility] ([facility]) [address] [place], [address], 04/19/2024 08:07:00 04/17/20 24 04/18/2024 CMP14 (REFL EX HGB A1C) chloride 101 mmol/ L 96-106 Not Available [facility] ([facility]) [address] [place], [address], 04/19/2024 08:07:00 04/17/20 24 04/18/2024 CMP14 (REFL EX HGB A1C) carbon dioxide, total 21 mmol/ L 20-29 Not Available [facility] ([facility]) [address] [place], [address], 04/19/2024 08:07:00 04/17/20 24 04/18/2024 CMP14 (REFL EX HGB A1C) calcium 9.0 mg/dL 8.7-10 .3 Not Available [facility] ([facility]) [address] [place], [address], 04/19/2024 08:07:00 04/17/20 24 04/18/2024 CMP14 (REFL EX HGB A1C) protein, total 7.3 g/dL 6.0-8. 5 Not Available [facility] ([facility]) [address] [place], [address], 04/19/2024 08:07:00 04/17/2004/18/2024 CMP14 (REFL EX HGB A1C) albumin 4.6 g/dL 3.8-4. 9 Not Available [facility] ([facility]) [address] [place], [address], 04/19/2024 08:07:00 04/17/2004/18/2024 CMP14 (REFL EX HGB A1C) globulin, total 2.7 g/dL 1.5-4. 5 Not Available [facility] ([facility]) [address] [place], [address], 04/19/2024 08:07:00 04/17/2004/18/2024 CMP14 (REFL EX HGB A1C) A/G ratio 1.7 1.2-2. 2 Not Available [facility] ([facility]) [address] [place], [address], 04/19/2024 08:07:00 04/17/2004/18/2024 CMP14 (REFL EX HGB A1C) bilirubin, total 0.4 mg/dL 0.0-1. 2 Not Available [facility] ([facility]) [address] [place], [address], 04/19/2024 08:07:00 04/17/20 24 04/18/2024 CMP14 (REFL EX HGB A1C) alkaline phosphatase 76 IU/L 44-121 Not Available [facility]) [address] [place], [address], 04/19/2024 08:07:00 04/17/20 24 04/18/2024 CMP14 (REFL EX HGB A1C) AST (SGOT) 25 IU/L 0-40 Not Available [facility] ([facility]) [address] [place], [address], 04/19/2024 08:07:00 04/17/2004/18/2024 CMP14 (REFL EX HGB A1C) ALT (SGPT) 21 IU/L 0-32 Not Available [facility] ([facility]) [address] [place], [address], 04/19/2024 08:07:00 04/17/2004/19/2024 CMP14 (REFL EX HGB A1C) hemoglobin A1C 5.9 % 4.8-5. 6 above high normal Predi abete s: 5.7 - 6.4 Diabe tia: >6.4 Glyce bernadette contr ol for adult s with diabe tia: <7.0 Not Available [facility] ([facility]) [address] [place], [address], 04/19/2024 08:07:00 04/17/2004/18/2024 TSH+F REE T4 TSH 0.430 uIU/m L 0.450- 4.500 below low normal Not Available [facility] ([facility]) [address] [place], [address], 04/19/2024 08:07:00 04/17/20 24 04/18/2024 TSH+F REE T4 T4,free(dire ct) 1.62 NG/dL 0.82-1 .77 Not Available [facility] ([facility]) [address] [facility], [place], [address], 04/19/2024 08:07:00 04/17/20 24 04/17/2024 CBC WITH DIFFE RENTI AL/PL ATELE T WBC 3.1 x10e3 /uL 3.4-10 .8 below low normal Not Available [facility] ([facility]) [address] [facility], [place], [address], 04/19/2024 08:07:01 04/17/20 24 04/17/2024 CBC WITH DIFFE RENTI AL/PL ATELE T RBC 4.67 x10e6 /uL 3.77-5 .28 Not Available [facility] ([facility]) [address] [facility], [place], [address], 04/19/2024 08:07:01 04/17/20 24 04/17/2024 CBC WITH DIFFE RENTI AL/PL ATELE T hemoglobin 13.4 g/dL 11.1-1 5.9 Not Available [facility] ([facility]) [address] [facility], [place], [address], 04/19/2024 08:07:01 04/17/20 24 04/17/2024 CBC WITH DIFFE RENTI AL/PL ATELE T hematocrit 40.4 % 34.0-4 6.6 Not Available [facility] ([facility]) [address] [facility], [place], [address], 04/19/2024 08:07:01 04/17/20 24 04/17/2024 CBC WITH DIFFE RENTI AL/PL ATELE T MCV 87 fL 79-97 Not Available [facility] ([facility]) [address] [facility], [place], [address], 04/19/2024 08:07:01 04/17/20 24 04/17/2024 CBC WITH DIFFE RENTI AL/PL ATELE T MCH 28.7 pg 26.6-3 3.0 Not Available [facility] ([facility]) [address] [facility], [place], [address], 04/19/2024 08:07:01 04/17/20 24 04/17/2024 CBC WITH DIFFE RENTI AL/PL ATELE T MCHC 33.2 g/dL 31.5-3 5.7 Not Available [facility] ([facility]) [address] [facility], [place], [address], 04/19/2024 08:07:01 04/17/20 24 04/17/2024 CBC WITH DIFFE RENTI AL/PL ATELE T RDW 12.2 % 11.7-1 5.4 Not Available [facility] ([facility]) [address] [facility], [place], [address], 04/19/2024 08:07:01 04/17/20 24 04/17/2024 CBC WITH DIFFE RENTI AL/PL ATELE T platelets 195 x10e3 /uL 150-45 0 Not Available [facility] ([facility]) [address] [facility], [place], [address], 04/19/2024 08:07:01 04/17/20 24 04/17/2024 CBC WITH DIFFE RENTI AL/PL ATELE T neutrophils 46 % not estab. Not Available [facility] ([facility]) [address] [place], [address], 04/19/2024 08:07:01 04/17/20 24 04/17/2024 CBC WITH DIFFE RENTI AL/PL ATELE T lymphs 40 % not estab. Not Available [facility] ([facility]) [address] [place], [address], 04/19/2024 08:07:01 04/17/20 24 04/17/2024 CBC WITH DIFFE RENTI AL/PL ATELE T monocytes 11 % not estab. Not Available [facility] ([facility]) [address] [place], [address], 04/19/2024 08:07:01 04/17/20 24 04/17/2024 CBC WITH DIFFE RENTI AL/PL ATELE T eos 2 % not estab. Not Available [facility] ([facility]) [address] [facility], [place], [address], 04/19/2024 08:07:01 04/17/20 24 04/17/2024 CBC WITH DIFFE RENTI AL/PL ATELE T basos 1 % not estab. Not Available [facility] ([facility]) [address] [facility], [place], [address], 04/19/2024 08:07:01 04/17/20 24 04/17/2024 CBC WITH DIFFE RENTI AL/PL ATELE T immature cells APPEALS ASSISTANT Not Available [facility] ([facility]) [address] [place], [address], 04/19/2024 08:07:01 04/17/20 24 04/17/2024 CBC WITH DIFFE RENTI AL/PL ATELE T neutrophils (absolute) 1.4 x10e3 /uL 1.4-7. 0 Not Available [facility] ([facility]) [address] [place], [address], 04/19/2024 08:07:01 04/17/20 24 04/17/2024 CBC WITH DIFFE RENTI AL/PL ATELE T lymphs (absolute) 1.3 x10e3 /uL 0.7-3. 1 Not Available [facility] ([facility]) [address] [place], [address], 04/19/2024 08:07:01 04/17/20 24 04/17/2024 CBC WITH DIFFE RENTI AL/PL ATELE T monocytes(ab solute) 0.4 x10e3 /uL 0.1-0. 9 Not Available [facility] ([facility]) [address] [place], [address], 04/19/2024 08:07:01 04/17/20 24 04/17/2024 CBC WITH DIFFE RENTI AL/PL ATELE T eos (absolute) 0.1 x10e3 /uL 0.0-0. 4 Not Available [facility] ([facility]) [address] [facility], [place], [address], 04/19/2024 08:07:01 04/17/20 24 04/17/2024 CBC WITH DIFFE RENTI AL/PL ATELE T baso (absolute) 0.0 x10e3 /uL 0.0-0. 2 Not Available [facility] ([facility]) [address] [facility], [place], [address], 04/19/2024 08:07:01 04/17/20 24 04/17/2024 CBC WITH DIFFE RENTI AL/PL ATELE T immature granulocytes 0 % not estab. Not Available [facility] ([facility]) [address] [facility], [place], [address], 04/19/2024 08:07:01 04/17/20 24 04/17/2024 CBC WITH DIFFE RENTI AL/PL ATELE T immature grans (abs) 0.0 x10e3 /uL 0.0-0. 1 Not Available [facility] ([facility]) [address] [facility], [place], [address], 04/19/2024 08:07:01 04/17/20 24 04/17/2024 CBC WITH DIFFE RENTI AL/PL ATELE T NRBC APPEALS ASSISTANT Not Available [facility] ([facility]) [address] [facility], [place], [address], 04/19/2024 08:07:01 04/17/20 24 04/17/2024 CBC WITH DIFFE RENTI AL/PL ATELE T hematology comments: APPEALS ASSISTANT Not Available [facility]) [address] [facility], [place], [address], 04/19/2024 08:07:01 04/17/20 24 04/18/2024 LIPID PANEL cholesterol, total 146 mg/dL 100-19 9 Not Available [facility] ([facility]) [address] [facility] [place], [address], 04/19/2024 08:07:02 04/17/20 24 04/18/2024 LIPID PANEL triglyceride s 128 mg/dL 0-149 Not Available [facility] ([facility] [address] [facility] [place], [address], 04/19/2024 08:07:02 04/17/20 24 04/18/2024 LIPID PANEL HDL cholesterol 41 mg/dL >39 Not Available [facility] [address] [facility] [place], [address], 04/19/2024 08:07:02 04/17/20 24 04/18/2024 LIPID PANEL VLDL cholesterol giuliano 23 mg/dL 5-40 Not Available [facility]) [address] [facility], [place], [address], 04/19/2024 08:07:02 04/17/20 24 04/18/2024 LIPID PANEL LDL chol calc (rust) 82 mg/dL 0-99 Not Available [facility] ([facility]) [address] [facility] [place], [address], 04/19/2024 08:07:02 04/17/20 24 04/18/2024 LIPID PANEL comment: APPEALS ASSISTANT Not Available [facility] ([facility]) [address] [facility] [place], [address], 04/19/2024 08:07:02 04/17/20 24 04/20/2024 HEMAT OPATH CONSU LTATI ON, SMEAR WBC APPEALS ASSISTANT Not Available [facility] ([facility]) [address] [facility] [place], [address], 04/20/2024 15:24:20 04/17/20 24 04/20/2024 HEMAT OPATH CONSU LTATI ON, SMEAR RBC APPEALS ASSISTANT Not Available [facility] ([facility]) [address] [facility], [place], [address], 04/20/2024 15:24:20 04/17/20 24 04/20/2024 HEMAT OPATH CONSU LTATI ON, SMEAR plts APPEALS ASSISTANT Not Available [facility] ([facility]) [address] [facility], [place], [address], 04/20/2024 15:24:20 04/17/20 24 04/20/2024 HEMAT OPATH CONSU LTATI ON, SMEAR comments/rec ommendations APPEALS ASSISTANT Not Available [facility]) [address] [facility], [place], [address], 04/20/2024 15:24:20 04/17/20 24 04/20/2024 HEMAT OPATH CONSU LTATI ON, SMEAR pathologist TNP Test not perfo rmed Not Available [facility] ([facility]) [address] [place], [address], 04/20/2024 15:24:20 04/17/20 24 04/20/2024 HEMAT OPATH CONSU LTATI ON, SMEAR WBC COMMEN T x10e3 /uL Test not perfo rmed due to the age of this speci men. Not Available [facility] ([facility]) [address] [facility], [place], [address], 04/20/2024 15:24:20 04/17/20 24 04/20/2024 HEMAT OPATH CONSU LTATI ON, SMEAR RBC TNP Test not perfo rmed Not Available [facility] ([facility]) [address] [place], [address], 04/20/2024 15:24:20 04/17/20 24 04/20/2024 HEMAT OPATH CONSU LTATI ON, SMEAR hemoglobin TNP Test not perfo rmed Not Available [facility] ([facility]) [address] [facility], [place], [address], 04/20/2024 15:24:20 04/17/20 24 04/20/2024 HEMAT OPATH CONSU LTATI ON, SMEAR hematocrit TNP Test not perfo rmed Not Available [facility] ([facility]) [address] [facility], [place], [address], 04/20/2024 15:24:20 04/17/20 24 04/20/2024 HEMAT OPATH CONSU LTATI ON, SMEAR MCV APPEALS ASSISTANT Not Available [facility] ([facility]) [address] [facility], [place], [address], 04/20/2024 15:24:20 04/17/20 24 04/20/2024 HEMAT OPATH CONSU LTATI ON, SMEAR MCH APPEALS ASSISTANT Not Available [facility] ([facility]) [address] [facility], [place], [address], 04/20/2024 15:24:20 04/17/20 24 04/20/2024 HEMAT OPATH CONSU LTATI ON, SMEAR MCHC APPEALS ASSISTANT Not Available [facility] ([facility]) [address] [facility], [place], [address], 04/20/2024 15:24:20 04/17/20 24 04/20/2024 HEMAT OPATH CONSU LTATI ON, SMEAR RDW COMMEN T % Test not perfo rmed due to the age of this speci men. Not Available [facility] ([facility]) [address] [facility], [place], [address], 04/20/2024 15:24:20 04/17/20 24 04/20/2024 HEMAT OPATH CONSU LTATI ON, SMEAR platelets TNP Test not perfo rmed Not Available [facility] ([facility]) [address] [place], [address], 04/20/2024 15:24:20 04/17/20 24 04/20/2024 HEMAT OPATH CONSU LTATI ON, SMEAR neutrophils TNP Test not perfo rmed Not Available [facility] ([facility]) [address] [place], [address], 04/20/2024 15:24:20 04/17/20 24 04/20/2024 HEMAT OPATH CONSU LTATI ON, SMEAR lymphs TNP Test not perfo rmed Not Available [facility] ([facility]) [address] [place], [address], 04/20/2024 15:24:20 04/17/20 24 04/20/2024 HEMAT OPATH CONSU LTATI ON, SMEAR monocytes TNP Test not perfo rmed Not Available [facility] ([facility]) [address] [place], [address], 04/20/2024 15:24:20 04/17/20 24 04/20/2024 HEMAT OPATH CONSU LTATI ON, SMEAR eos TNP Test not perfo rmed Not Available [facility] ([facility]) [address] [place], [address], 04/20/2024 15:24:20 04/17/20 24 04/20/2024 HEMAT OPATH CONSU LTATI ON, SMEAR basos APPEALS ASSISTANT Not Available [facility] ([facility]) [address] [place], [address], 04/20/2024 15:24:20 04/17/20 24 04/20/2024 HEMAT OPATH CONSU LTATI ON, SMEAR immature cells APPEALS ASSISTANT Not Available [facility] ([facility]) [address] [place], [address], 04/20/2024 15:24:20 04/17/20 24 04/20/2024 HEMAT OPATH CONSU LTATI ON, SMEAR neutrophils (absolute) APPEALS ASSISTANT Not Available [facility] ([facility]) [address] [place], [address], 04/20/2024 15:24:20 04/17/20 24 04/20/2024 HEMAT OPATH CONSU LTATI ON, SMEAR lymphs (absolute) TNP Test not perfo rmed Not Available [facility] ([facility]) [address] [facility], [place], [address], 04/20/2024 15:24:20 04/17/20 24 04/20/2024 HEMAT OPATH CONSU LTATI ON, SMEAR monocytes(ab solute) APPEALS ASSISTANT Not Available [facility] ([facility]) [address] [place], [address], 04/20/2024 15:24:20 04/17/20 24 04/20/2024 HEMAT OPATH CONSU LTATI ON, SMEAR eos (absolute) TNP Test not perfo rmed Not Available [facility] ([facility]) [address] [place], [address], 04/20/2024 15:24:20 04/17/20 24 04/20/2024 HEMAT OPATH CONSU LTATI ON, SMEAR baso (absolute) TNP Test not perfo rmed Not Available [facility] ([facility]) [address] [facility], [place], [address], 04/20/2024 15:24:20 04/17/20 24 04/20/2024 HEMAT OPATH CONSU LTATI ON, SMEAR immature granulocytes APPEALS ASSISTANT Not Available [facility] ([facility]) [address] [place], [address], 04/20/2024 15:24:20 04/17/20 24 04/20/2024 HEMAT OPATH CONSU LTATI ON, SMEAR immature grans (abs) APPEALS ASSISTANT Not Available [facility] ([facility]) [address] [place], [address], 04/20/2024 15:24:20 04/17/20 24 04/20/2024 HEMAT OPATH CONSU LTATI ON, SMEAR NRBC APPEALS ASSISTANT Not Available [facility] ([facility]) [address] [place], [address], 04/20/2024 15:24:20 04/17/20 24 04/20/2024 HEMAT OPATH CONSU LTATI ON, SMEAR hematology comments: APPEALS ASSISTANT Not Available [facility] ([facility]) [address] [facility], [place], [address], 04/20/2024 15:24:20 04/17/20 24 04/20/2024 WRITT EN AUTHO RIZAT ION written authorizatio n Commen t Efrainitt en Autho rizat ion Recei je. Autho rizat ion recei je from [facility] SON for Link Reque st on 04-20 Logge d by Bryant Webber Not Available [facility] ([facility]) [address] [place], [address], 04/20/2024 15:24:21 04/17/20 24 04/20/[address] PROBL EM request problem COMMEN T Test not perfo rmed due to the age of this speci men. TEST: [id number] Hemat opath Consu ltati on, Smear Not Available [facility] ([facility]) [address] [place], [address], 04/20/2024 15:24:22 05/13/20 24 05/14/2024 TSH+F REE T4 TSH 0.237 uIU/m L 0.450- 4.500 below low normal Not Available [facility] ([facility]) [address] [place], [address], 05/20/2024 22:06:00 05/13/20 24 05/14/2024 TSH+F REE T4 T4,free(dire ct) 1.36 NG/dL 0.82-1 .77 Not Available [facility] ([facility]) [address] [place], [address], 05/20/2024 22:06:00 05/13/20 24 05/14/2024 HEMAT OPATH CONSU LTATI ON, SMEAR WBC 3.8 x10e3 /uL 3.4-10 .8 Not Available [facility] ([facility]) [address] [facility], [place], [address], 05/20/2024 22:06:01 05/13/20 24 05/14/2024 HEMAT OPATH CONSU LTATI ON, SMEAR RBC 4.54 x10e6 /uL 3.77-5 .28 Not Available [facility] ([facility]) [address] [facility], [place], [address], 05/20/2024 22:06:01 05/13/20 24 05/14/2024 HEMAT OPATH CONSU LTATI ON, SMEAR hemoglobin 13.5 g/dL 11.1-1 5.9 Not Available [facility] ([facility]) [address] [place], [address], 05/20/2024 22:06:01 05/13/20 24 05/14/2024 HEMAT OPATH CONSU LTATI ON, SMEAR hematocrit 41.5 % 34.0-4 6.6 Not Available [facility] ([facility]) [address] [place], [address], 05/20/2024 22:06:01 05/13/20 24 05/14/2024 HEMAT OPATH CONSU LTATI ON, SMEAR MCV 91 fL 79-97 Not Available [facility] [facility] [address] [place], [address], 05/20/2024 22:06:01 05/13/20 24 05/14/2024 HEMAT OPATH CONSU LTATI ON, SMEAR MCH 29.7 pg 26.6-3 3.0 Not Available [facility] ([facility]) [address] [place], [address], 05/20/2024 22:06:01 05/13/20 24 05/14/2024 HEMAT OPATH CONSU LTATI ON, SMEAR MCHC 32.5 g/dL 31.5-3 5.7 Not Available [facility] ([facility]) [address] [facility], [place], [address], 05/20/2024 22:06:01 05/13/20 24 05/14/2024 HEMAT OPATH CONSU LTATI ON, SMEAR RDW 12.2 % 11.7-1 5.4 Not Available [facility] ([facility]) [address] [facility], [place], [address], 05/20/2024 22:06:01 05/13/20 24 05/14/2024 HEMAT OPATH CONSU LTATI ON, SMEAR platelets 214 x10e3 /uL 150-45 0 Not Available [facility] ([facility]) [address] [facility], [place], [address], 05/20/2024 22:06:01 05/13/20 24 05/14/2024 HEMAT OPATH CONSU LTATI ON, SMEAR neutrophils 58 % not estab. Not Available [facility] ([facility]) [address] [facility], [place], [address], 05/20/2024 22:06:01 05/13/20 24 05/14/2024 HEMAT OPATH CONSU LTATI ON, SMEAR lymphs 30 % not estab. Not Available [facility] ([facility]) [address] [facility], [place], [address], 05/20/2024 22:06:01 05/13/20 24 05/14/2024 HEMAT OPATH CONSU LTATI ON, SMEAR monocytes 9 % not estab. Not Available [facility] ([facility]) [address] [facility], [place], [address], 05/20/2024 22:06:01 05/13/20 24 05/14/2024 HEMAT OPATH CONSU LTATI ON, SMEAR eos 2 % not estab. Not Available [facility] ([facility]) [address] [facility], [place], [address], 05/20/2024 22:06:01 05/13/20 24 05/14/2024 HEMAT OPATH CONSU LTATI ON, SMEAR basos 1 % not estab. 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 0 Not Available [facility] ([facility]) [address] [facility], [place], [address], 05/20/2024 22:06:01 05/13/20 24 05/14/2024 HEMAT OPATH CONSU LTATI ON, SMEAR lymphs (absolute) 1.1 x10e3 /uL 0.7-3. 1 Not Available [facility] ([facility]) [address] [place], [address], 05/20/2024 22:06:01 05/13/20 24 05/14/2024 HEMAT OPATH CONSU LTATI ON, SMEAR monocytes(ab solute) 0.3 x10e3 /uL 0.1-0. 9 Not Available [facility] ([facility]) [address] [place], [address], 05/20/2024 22:06:01 05/13/20 24 05/14/2024 HEMAT OPATH CONSU LTATI ON, SMEAR eos (absolute) 0.1 x10e3 /uL 0.0-0. 4 Not Available [facility] ([facility]) [address] [facility], [place], [address], 05/20/2024 22:06:01 05/13/20 24 05/14/2024 HEMAT OPATH CONSU LTATI ON, SMEAR baso (absolute) 0.0 x10e3 /uL 0.0-0. 2 Not Available [facility] ([facility]) [address] [facility], [place], [address], 05/20/2024 22:06:01 05/13/20 24 05/14/2024 HEMAT OPATH CONSU LTATI ON, SMEAR immature granulocytes 0 % not estab. Not Available [facility] ([facility]) [address] [facility], [place], [address], 05/20/2024 22:06:01 05/13/20 24 05/14/2024 HEMAT OPATH CONSU LTATI ON, SMEAR immature grans (abs) 0.0 x10e3 /uL 0.0-0. 1 Not Available [facility] ([facility]) [address] [facility], [place], [address], 05/20/2024 22:06:01 05/13/20 24 05/14/2024 HEMAT OPATH CONSU LTATI ON, SMEAR NRBC APPEALS ASSISTANT Not Available [facility] ([facility]) [address] [facility], [place], [address], 05/20/2024 22:06:01 05/13/20 24 05/14/2024 HEMAT OPATH CONSU LTATI ON, SMEAR hematology comments: APPEALS ASSISTANT Eff ectiv e June 29, 2024 profi slava [id number] Hemat opath Consu ltati on, Smear will be made non-o rdera ble. The lab will add a Patho logis t Revie w to abnor mal CBCs that requi re a Patho logis t Revie w based on the busin ess rules . Not Available [facility] ([facility]) [address] [facility], [place], [address], 05/20/2024 22:06:01 05/13/20 24 05/16/2024 HEMAT OPATH CONSU LTATI ON, SMEAR WBC Commen t Few lymph ocyte s appea r react rigo. Not Available [facility] ([facility]) [address] [facility], [place], [address], 05/20/2024 22:06:01 05/13/20 24 05/16/2024 HEMAT OPATH CONSU LTATI ON, SMEAR RBC RBC's appear normal . Not Available [facility] ([facility]) [address] [facility], [place], [address], 05/20/2024 22:06:01 05/13/20 24 05/16/2024 HEMAT OPATH CONSU LTATI ON, SMEAR plts Ade[place] te Not Available [facility] ([facility]) [address] [facility], [place], [address], 05/20/2024 22:06:01 05/13/20 24 05/16/2024 HEMAT OPATH CONSU LTATI ON, SMEAR comments/rec ommendations Commen t Corre latio n and Clini adalgisa appro priat e follo w mira fisher. Not Available [facility] ([facility]) [address] [facility], [place], [address], 05/20/2024 22:06:01 05/13/20 24 05/16/2024 HEMAT OPATH CONSU LTATI ON, SMEAR pathologist Commen t Revie wed by: Swati allen MD, Patho logis t Not Available [facility] ([facility]) [address] [facility], [place], [address], 05/20/2024 22:06:01 05/13/20 24 05/20/2024 COMPR EHENS RIGO THYRO GLOBU KAITLYN anti-thyrogl obulin antibodies <1.0 IU/mL Refer ence Range : <1.0 Negat rigo > or = 1.0 Posit rigo Not Available [facility] [address] [place], [address], 05/20/2024 22:06:02 05/13/20 24 05/20/2024 COMPR EHENS RIGO THYRO GLOBU KAITLYN thyroglobuli n (icma) 5.8 NG/mL Refer ence Range : >17y: 1.5 - 38.5 Accor jordin to the Natio nal Acade my of Clini giul[facility] emist ry, the refer ence inter sean for Thyro globu kaitlyn (TG) shoul d be relat ed to euthy roid patie nts and not for patie nts who under went thyro idect kavya. TG refer ence inter vals for these patie nts depen d on the resid ual mass of the thyro id tissu e left after surge ry. Estab lischristine ng a post- opera tive basel ine is recom artie d. The assay quant itati on limit is 0.1 ng/mL . Not Available [facility] [address] [place], [address], 05/20/2024 22:06:02 05/13/20 24 05/20/2024 COMPR EHENS RIGO THYRO GLOBU KAITLYN thyroglobuli n (TG-reji) Commen t NG/mL Not appli cable This test was rajat sanchez and its perfo rmanc e coleen cteri stics deter mined by [facility]. It has not been clear ed or appro je by the Food and Drug Admin istra tion. Not Available [facility] [address] [place], [address], 05/20/2024 22:06:02 05/13/20 24 05/16/2024 THYRO TROPI N SAS ETL DEVELOPER TOR AB, SERUM thyrotropin receptor Ab, serum <1.10 IU/L 0.00-1 .75 Not Available [facility] ([facility]) [address] [facility], [place], [address], 05/20/2024 22:06:02 06/12/05/15/2024 THYRO ID STIM IMMUN OGLOB ULIN thyroid stim immunoglobul in <0.10 IU/L 0.00-0 .55 Not Available [facility] ([facility]) [address] [facility], [place], [address], 05/20/2024 22:06:03 05/13/20 24 05/20/2024 ANTI- TPO AB (RDL) anti-tpo Ab (rdl) <9.0 IU/mL <9.0 Not Available [facility] [address] [place], [address], 05/20/2024 22:06:04 05/13/20 24 05/14/2024 TRIIO DOTHY EZIO E (T3), FREE triiodothyro nine (T3), free 2.7 pg/mL 2.0-4. 4 Not Available [facility] ([facility]) [address] [facility], [place], [address], 05/20/2024 22:06:05 12/20/19 24 12/20/2023 MAMMO , scree say, digit al, bilat eral PROCED URE: MM Digita l Mammo Screen ing INDICA TION: Screen ing for breast cancer . No known palpab le abnorm alitie s. COMPAR ROXANN: Multip le priors dating back to 020 TECHNI QUE: Full-f ield digita l CC and MLO 3D tomosy nthesi s images of both breast s were acquir ed. Comput er-aid ed detect ion (CAD) was utiliz ed in the interp retati on of this study. DENSIT Y: The breast tissue is hetero geneou sly dense, which may obscur e masses . FINDIN GS: No suspic ious masses , suspic ious microc alcifi cation s, or areas of john ectura l distor tion are seen in either breast to sugges t malign rebecca. IMPRES PERRY: No mammog raphic eviden ce of malign rebecca. RECOMM ENDATI ON: Annual mammog raphic screen ing BI-RAD S: 1 (Negat rigo) Lay letter mailed to briana bautista WSN: [id number] Orderi ng Physic sheila: Anson Son Dictat ed By: Mary Gardner MD Dictat ed Date/T zenaida: 5:10 pm Review ed By: Mary Gardner MD Signed By: Mary Gardner MD Signed Date/T zenaida: 5:10 pm Transc ribed By: CSB Transc riptio n Date/T zenaida: 5:03 pm Birads : Briana bautista Class: Outpat ient [id number] [facility] (Outpt Imaging) [address], [place], [address], 12/23/2023 09:28:33 12/20/19 24 12/20/2023 MAMMO , scree say, digit al, bilat eral No observ ation record ed. [facility] [address], [place], [address], 12/30/2023 11:46:17 10/31/20 24 09/04/2024 US, thyro id No observ ation record ed. [facility] (Medical Records) [address] [place], [address], 11/01/2024 14:05:42 Result Notes None recorded. Problems Name Problem SNOMED Code Status Onset Date Resolution Date Notes Provider Name and Address Organization Details Recorded Time Sprains and strains of joints and adjacent muscles Completed 201106/15/2014 RECORDED 08/25/20 12 12:51PM BY LEENA CAPPS MA, ANNOTATI ON/ADDKARMEN DUM Not Available [facility] 4 15:10:55 Disorder of joint of shoulder region 323408664 Completed 201302/19/2024 Sanju Son MD [address] [facility] [address], [place], [address] , [place] [facility] 4 14:12:54 Backache 432799844 Completed 201306/15/2014 RECORDED 01/12/20 14 4:02PM BY SCAR FLORES MA, ANNOTATI ON/ADDEN DUM Not Available [facility] 4 15:10:55 Acute sinusiti s 33503028 Completed 201106/15/2014 RECORDED 06/30/20 12 3:13PM BY SCAR FLORES MA, ANNOTATI ON/ADDEN DUM Not Available [facility] 4 15:10:55 Adjustme nt disorder with anxious mood 39312312 Active 2013 RAHUL Persaud, [facility] 7 15:14:39 Adult health examinat ion Completed 201306/15/2014 RECORDED 01/12/20 14 4:02PM BY SCAR FLORES MA, ANNOTATI ON/ADDEN DUM Latonia Hai coto [facility] 1 11:29:35 Tobacco user 342563055 Completed 201206/15/2014 RECORDED 07/07/20 13 4:57PM BY DIAMANTE ALEXANDER MA, ANNOTATI ON/ADDEN DUM RAHUL Persaud, [facility] 7 15:13:52 History of clinical finding in subject [id number] Completed 201201/24/2017 RAHUL Persaud, [facility] 7 15:14:29 Patient status finding [id number] Completed 201206/15/2014 RECORDED 07/07/20 13 4:57PM BY DIAMANTE ALEXANDER MA, ANNOTATI ON/ADDEN DUM Not Available [facility] 4 15:10:56 Pain in limb 85466029 Completed 201301/24/2017 RAHUL Persaud, [facility] 7 15:15:02 Elevated blood-pr essure reading without diagnosi s of hyperten perry 192259930 Completed 201306/15/2014 RECORDED 01/12/20 14 4:00PM BY SCAR FLORES MA, ANNOTATI ON/ADDEN DUM Not Available [facility] 4 15:10:56 Screenin g for malignan t neoplasm of breast Completed 201106/15/2014 RECORDED 06/30/20 12 3:13PM BY SCAR FLORES MA, ANNOTATI ON/ADDEN DUM Not Available [facility] 4 15:10:56 Screenin g for malignan t neoplasm of cervix Completed 201301/24/2017 RAHUL Persaud, [facility] 7 15:14:03 Screenin g for malignan t neoplasm of cervix Completed 201106/15/2014 RECORDED 06/30/20 12 3:13PM BY SCAR FLORES MA, ANNOTATI ON/ADDEN DUM Scar dietz MA null, [facility] 7 15:14:03 Angina pectoris 759853577 Completed 201106/15/2014 RECORDED 08/27/20 12 11:35AM BY LEENA CAPPS MA, ANNOTATI ON/ADDEN DUM Not Available [facility] 4 15:10:56 Chest pain 59622625 Completed 201106/15/2014 IMPRESSI ON: PT WITH INTERMIT TENT CHEST PAINS SINCE THE BEGINNIN G OF THIS MONTH, TOTAL OF 3 EPISODES , TODAY'S LASTING LONGEST (INITIAL LY STARTED THIS AM UPON WAKING). CURRENTL Y WITH DULL ACHING IN L ARM. SOME CONCERN REGARDIN G NEW T WAVE CHANGES IN ANTERIOR LEADS. LAST FOR COMPARIS ON 2006 WHICH WAS NSR. DISCUSSE D WITH PCP. PT AWARE OF CONCERNS , TO ER TO R/O ACUTE CARDIAC EVENT. NITRO AND BABY ASA GIVEN IN OFFICE, TAKEN VIA AMBULANC E. WILL MEET HER THERE.; RECORDED 08/27/20 12 11:35AM BY LEENA CAPPS MA, JOSE DATI ON/ADDEN DUM Not Available [facility] 4 15:10:56 Screenin g for malignan t neoplasm of colon Completed 201306/15/2014 RECORDED 01/12/20 14 4:02PM BY SCAR FLORES MA, ANNOTATI ON/ADDEN DUM Not Available [facility] 4 15:10:56 Cough [id number] Completed 201206/15/2014 IMPRESSI ON: C/W VIRAL INFX., RECOMMEN D SUPPORTI VE TX INCL. REST/HYD RATION; RECORDED 07/07/20 13 4:57PM BY DIAMANTE ALEXANDER MA, ANNOTATI ON/ADDEN DUM Not Available [facility] 4 15:10:57 [facility] hyperten perry 78437261 Active 2013 STORY: STABLE IN PRE-HYPE RTENSIVE RANGE WITHOUT MEDS. RAHUL Persaud, [facility] 7 15:14:46 Malaise and fatigue 884722887 Completed 201106/15/2014 RECORDED 06/30/20 12 3:13PM BY SCAR FLORES MA, ANNOTATI ON/ADDEN DUM Not Available [facility] 4 15:10:57 Hidraden itis 56335503 Completed 201302/19/2024 Sanju Son MD [address] [address], [facility] [place], [address] , [facility] 4 14:13:18 Hyperlip idemia 14032003 Active 2013 RAHUL Persaud, [facility] 7 15:14:37 Hypothyr oidism 32826143 Active 2013 RAHUL Persaud, [facility] 7 15:14:22 Immuniza tion refused Completed 201301/24/2017 RECORDED 01/12/20 14 4:14PM BY SCAR FLORES MA, OFFICE VISIT RAHUL Persaud, [facility] 7 15:14:13 Insomnia 432745308 Active 2013 RAHUL Persaud, [facility] 7 15:14:05 Major depressi on single episode, in partial remissio n 05848451 Active 2013 RAHUL Persaud, [facility] 7 15:14:49 Neck pain 39703621 Completed 201206/15/2014 RECORDED 07/07/20 13 4:57PM BY DIAMANTE ALEXANDER MA, ANNOTATI ON/ADDEN DUM Not Available [facility] 4 15:10:57 Influenz a vaccine needed 51599322496 06 Completed 201106/15/2014 RECORDED 08/27/20 12 11:35AM BY LEENA CAPPS MA, ANNOTATI ON/ADDEN DUM Not Available [facility] 4 15:10:57 Administ ration of tetanus vaccine Completed 201106/15/2014 RECORDED 06/30/20 12 3:13PM BY SCAR FLORES MA, ANNOTATI ON/ADDEN DUM Not Available [facility] 4 15:10:58 Obesity 258036078 Completed 201302/19/2024 Sanju Son MD [address] [address], [place], [address] , [facility] 4 14:14:42 [place]weig ht 040314907 Active 2013 RAHUL Persaud, [facility] 7 15:14:07 Right upper quadrant pain 776369471 Completed 201106/15/2014 RECORDED 08/25/20 12 12:51PM BY LEENA CAPPS MA, ANNOTATI ON/ADDEN DUM RAHUL Persaud, [facility] 7 15:14:11 Right upper quadrant pain 162201392 Completed 201301/24/2017 RECORDED 01/12/20 14 5:02PM BY WAQAS BEARD MD, OFFICE VISIT RAHUL Persaud [facility] 7 15:14:11 Salvador 456216700 Completed 201206/15/2014 RECORDED 07/07/20 13 4:57PM BY DIAMANTE ALEXANDER MA, ANNOTATI ON/ADDEN DUM Not Available [facility] 4 15:10:58 Disorder of bursa of shoulder region 18052224 Completed 201106/15/2014 RECORDED 06/30/20 12 3:13PM BY SCAR FLORES MA, ANNOTATI ON/ADDEN DUM Not Available [facility] 4 15:10:58 Varicose veins of lower extremit y 67518677 Active 2013 RAHUL Persaud, [facility] 7 15:14:52 Sprain of costal cartilag e Completed 201106/15/2014 RECORDED 06/30/20 12 3:13PM BY SCAR FLORES MA, ANNOTATI ON/ADDEN DUM Not Available [facility] 4 15:10:58 Administ ration of diphther ia, pertussi s, and tetanus vaccine Completed 201301/24/2017 RECORDED 01/12/20 14 4:14PM BY SCAR FLORES MA, OFFICE VISIT RAHUL Persaud, [facility] 7 15:14:17 Musculos keletal disorder of the neck 585754084 Completed 201106/15/2014 RECORDED 06/30/20 12 3:13PM BY SCAR FLORES MA, ANNOTATI ON/ADDEN DUM Not Available [facility] 4 15:10:58 Acute upper respirat ory infectio n 38517677 Completed 201106/15/2014 IMPRESSI ON: VIRAL MUCINEX, VOICE REST FOR THE HOARSE VOICE IF NOT IMPROVIN G IN 1 WEEK, CALL THE OFFICE; RECORDED 06/30/20 12 3:13PM BY SCAR FLORES MA, DIEUDONNE ON/ADDEN DUM Not Available [facility] 4 15:10:58 Exposure to organism Completed 201301/24/2017 RECORDED 01/12/20 14 5:15PM BY WAQAS BEARD MD, OFFICE VISIT RAHUL Persaud MA [facility] 7 15:14:34 Sprains and strains of joints and adjacent muscles Completed 201107/12/2014 RECORDED 08/25/20 12 12:51PM BY LEENA CAPPS MA, DIEUDONNE ON/ADDEN DUM Not Available [facility] 4 05:42:26 Backache 518753434 Completed 201307/12/2014 RECORDED 01/12/20 14 4:02PM BY SCAR FLORES MA, JOSE DATI ON/ADDEN DUM Not Available [facility] 4 05:42:26 Acute sinusiti s 80233484 Completed 201107/12/2014 RECORDED 06/30/20 12 3:13PM BY SCAR FLORES MA, ANNOTATI ON/ADDEN DUM Not Available [facility] 4 05:42:26 Tobacco user 364539159 Completed 201207/12/2014 RECORDED 07/07/20 13 4:57PM BY DIAMANTE ALEXANDER MA, ANNOTATI ON/ADDEN DUM RAHUL Persaud [facility] 7 15:13:52 Patient status finding 620910180 Completed 201207/12/2014 RECORDED 07/07/20 13 4:57PM BY DIAMANTE ALEXANDER MA, ANNOTATI ON/ADDEN DUM Not Available [facility] 4 05:42:27 Elevated blood-pr essure reading without diagnosi s of hyperten perry 752294628 Completed 201307/12/2014 RECORDED 01/12/20 14 4:00PM BY SCAR FLORES MA, ANNOTATI ON/ADDEN DUM Not Available [facility] 4 05:42:27 Screenin g for malignan t neoplasm of breast Completed 201107/12/2014 RECORDED 06/30/20 12 3:13PM BY SCAR FLORES MA, ANNOTATI ON/ADDEN DUM Not Available [facility] 4 05:42:27 Angina pectoris 193871860 Completed 201107/12/2014 RECORDED 08/27/20 12 11:35AM BY LEENA CAPPS MA, ANNOTATI ON/ADDEN DUM Not Available [facility] 4 05:42:27 Chest pain 29375862 Completed 201107/12/2014 IMPRESSI ON: PT WITH INTERMIT TENT CHEST PAINS SINCE THE BEGINNIN G OF THIS MONTH, TOTAL OF 3 EPISODES , TODAY'S LASTING LONGEST (INITIAL LY STARTED THIS AM UPON WAKING). CURRENTL Y WITH DULL ACHING IN L ARM. SOME CONCERN REGARDIN G NEW T WAVE CHANGES IN ANTERIOR LEADS. LAST FOR COMPARIS ON 2006 WHICH WAS NSR. DISCUSSE D WITH PCP. PT AWARE OF CONCERNS , TO ER TO R/O ACUTE CARDIAC EVENT. NITRO AND BABY ASA GIVEN IN OFFICE, TAKEN VIA AMBULANC E. WILL MEET HER THERE.; RECORDED 08/27/20 12 11:35AM BY LEENA CAPPS MA, ANNOTATI ON/ADDEN DUM Not Available [facility] 4 05:42:27 Screenin g for malignan t neoplasm of colon Completed 201307/12/2014 RECORDED 01/12/20 14 4:02PM BY SCAR FLORES MA, ANNOTATI ON/ADDEN DUM Not Available [facility] 4 05:42:27 Cough 23510229 Completed 201207/12/2014 IMPRESSI ON: C/W VIRAL INFX., RECOMMEN D SUPPORTI VE TX INCL. REST/HYD RATION; RECORDED 07/07/20 13 4:57PM BY DIAMANTE ALEXANDER MA, ANNOTATI ON/ADDEN DUM Not Available [facility] 4 05:42:27 Malaise and fatigue 339162159 Completed 201107/12/2014 RECORDED 06/30/20 12 3:13PM BY SCAR FLORES MA, JOSE DATI ON/ADDEN DUM Not Available [facility] 4 05:42:27 Neck pain 01726919 Completed 201207/12/2014 RECORDED 07/07/20 13 4:57PM BY DIAMANTE ALEXANDER MA, ANNOTATI ON/ADDEN DUM Not Available [facility] 4 05:42:27 Influenz a vaccine needed 24641686272 06 Completed 201107/12/2014 RECORDED 08/27/20 12 11:35AM BY LEENA CAPPS MA, DIEUDONNE ON/ADDEN DUM Not Available [facility] 4 05:42:27 Administ ration of tetanus vaccine Completed 201107/12/2014 RECORDED 06/30/20 12 3:13PM BY SCAR FLORES MA, ANNOTATI ON/ADDEN DUM Not Available [facility] 4 05:42:27 Right upper quadrant pain 422355014 Completed 201107/12/2014 RECORDED 08/25/20 12 12:51PM BY LEENA CAPPS MA, ANNOTATI ON/ADDEN DUM RAHUL Persaud [place] - [facility] 7 15:14:11 Rosacea 722328630 Completed 201207/12/2014 RECORDED 07/07/20 13 4:57PM BY DIAMANTE ALEXANDER MA, ANNOTATI ON/ADDEN DUM Not Available [facility] 4 05:42:27 Disorder of bursa of shoulder region 70067924 Completed 201107/12/2014 RECORDED 06/30/20 12 3:13PM BY SCAR FLORES MA, ANNOTATI ON/ADDEN DUM Not Available [facility] 4 05:42:27 Sprain of costal cartilag e Completed 201107/12/2014 RECORDED 06/30/20 12 3:13PM BY SCAR FLORES MA, ANNOTELIA ON/ADDEN DUM Not Available [facility] 4 05:42:27 Musculos keletal disorder of the neck 202970296 Completed 201107/12/2014 RECORDED 06/30/20 12 3:13PM BY SCAR FLORES MA, ANNOTATI ON/ADDEN DUM Not Available [facility] 4 05:42:27 Acute upper respirat ory infectio n 67686965 Completed 201107/12/2014 IMPRESSI ON: VIRAL MUCINEX, VOICE REST FOR THE HOARSE VOICE IF NOT IMPROVIN G IN 1 WEEK, CALL THE OFFICE; RECORDED 06/30/20 12 3:13PM BY SCAR FLORES MA, ANNOTATI ON/ADDEN DUM Not Available [facility] 4 05:42:27 Fatigue 62120601 Completed 01/24/2017 RAHUL Persaud, [facility] 7 15:14:58 Dysuria 60163363 Completed 01/24/2017 RAHUL Persaud, [facility] 7 15:14:41 Hypergly cemia 34188590 Completed 02/19/2024 Sanju Son MD [address] [address], [place], [address] , [facility] 4 14:29:40 Ex-smoke r 7524959 Active 2016 RAHUL Persaud, [facility] 7 15:13:58 Iron deficien cy anemia 63944588 Completed 201702/19/2024 Sanju Son MD [address], [place], [address] , [facility] 4 14:14:03 Problem Notes None recorded. Procedures Surgical History Date Name Laterality Status Provider Name and Address Organization Details Recorded Time 08/27/20 24 Colonoscopy completed Abi Tyler MA [facility] 09/18/2024 13:55:55 12/20/19 24 Most Recent Mammogram completed Letha Ward [facility] 12/23/2023 09:28:30 10/19/20 22 Mammogram both breasts completed Scar ochoa MA [facility] 01/02/2023 14:13:12 07/20/20 21 Date of Last Pap Smear completed Scar ochoa MA [facility] 01/02/2023 14:13:25 09/04/20 18 Date of Last Colonoscopy completed Landy Blankenship [facility] 09/04/2018 11:43:43 09/04/20 18 Colonoscopy completed Landy Blankenship [facility] 09/04/2018 11:43:38 09/04/20 18 Egd diagnostic brush wash completed Landy Blankenship [facility] 09/04/2018 11:44:00 Imaging Results Imaging Date Name Status LastModified by Organiz ation Details LastModified Time 12/20/2023 MAMMO, screening, digital, bilateral completed [id number] [facility] (Outpt Imaging) [address] [place], [address], 12/23/2023 09:28:33 12/20/2023 MAMMO, screening, digital, bilateral completed [facility] [address], [place], [address], 12/30/2023 11:46:17 09/04/2024 US, thyroid completed [facility] (Medical Records) [address] [place], [address], 11/01/2024 14:05:42 Procedure Notes None recorded. Medical Equipment None Reported. Allergies Allergen ID Allergen Name Allergen Category Reaction Reaction Severity Criticality Documentation Date Start Date Code Code System Note Provider Name and Address Organization Details Recorded Time 32997 amlodipin e medicatio n edema Not available Not available 10/06/2019 19363 RxNorm RAHUL Fair, [place] - [facility] 13:55:45 Medications Name Sig Start Date Stop Date Status Note LastModified by Organization Details LastModified Time compounde d medicatio n Use twice a day after shower or bowel movement , do not use for more than 2 weeks. 2023 active Not Available Not Available Not Avai lable amoxicill in 500 mg capsule TAKE 1 CAPSULE BY MOUTH THREE TIMES DAILY UNTIL FINISHED 09/20 completed Not Available Not Available Not Available atorvasta tin 20 mg tablet Take 1 tablet every day by oral route for 30 days. 01/16 completed Not Available Not Available Not Available clindamyc in HCl 300 mg capsule active Not Available Not Available Not Available famotidin e 10 mg tablet Take 1 tablet every day by oral route. 02/14 completed Not Available Not Available Not Available Iron (ferrous sulfate) 325 mg (65 mg iron) tablet Take 1 tablet every day by oral route. 04/21 completed Not Available Not Available Not Available ibuprofen 800 mg tablet TAKE 1 TABLET BY MOUTH 4 TIMES DAILY NEEDED FOR PAIN WITH food 09/20 completed Not Available Not Available Not Available naltrexon e 50 mg tablet TAKE 1/2 tablet BY MOUTH ONCE DAILY 09/15 completed Not Available Not Available Not Available sertralin e 100 mg tablet QD 07/07 completed RECORDED 07/07/20 13 5:01PM BY DIAMANTE ALEXANDER MA, OFFICE VISIT; Not Available Not Available Not Available Zithromax Z-Abraham 250 mg tablet QD 02/22 completed RECORDED 04/05/20 09 11:16AM BY WAQAS BEARD MD, MEDICATI ON AUTO-GUALBERTO CTIVATIO N; Not Available Not Available Not Available acetamino phen 300 mg-codein e 30 mg tablet active Not Available Not Available Not Available amlodipin e 5 mg tablet TAKE 1 TABLET BY MOUTH ONCE DAILY active Not Available Not Available No t Available sulfameth oxazole 800 mg-trimet hoprim 160 mg tablet Take 1 tablet twice a day by oral route for 3 days. active Not Available Not Available No t Available peg-elect rolyte solution 420 gram oral solution 03/16 completed Not Available Not Available Not Available calcium 600 mg (as calcium carbonate 1,500 mg) tablet DAILY 01/06 completed RECORDED 01/06/20 13 3:27PM BY DIAMANTE ALEXANDER MA, OFFICE VISIT; Not Available Not Available Not Available famotidin e 20 mg tablet Take 1 tablet every day by oral route. 10/01 completed OTC Not Available Not Available Not Available amlodipin e 10 mg tablet TAKE 1 TABLET BY MOUTH every DAY active Not Available Not Available No t Available benzonata te 100 mg capsule Take 1 capsule 3 times a day by oral route for 10 days. 02/11 completed Not Available Not Available Not Available doxycycli ne monohydra te 100 mg capsule BID 2007 active RECORDED 09/28/20 09 9:40AM BY WAQAS BEARD MD, ANNOTATI ON/ADDEN DUM; Not Available Not Available Not Available polymyxin B sulfate 10,000 unit-trim ethoprim 1 mg/mL eye drops Instill 1 drop 6 times a day by ophthalm ic route for 7 days. 02/11 completed Not Available Not Available Not Available metronida zole 0.75 % topical cream APPLY A THIN LAYER TO THE AFFECTED AREA(S) BY TOPICAL ROUTE 2 TIMES PER DAY IN THE MORNING AND EVENING 03/16 completed Not Available Not Available Not Available nitroglyc ximena 0.4 mg sublingua l tablet PRN 03/16 completed RECORDED 07/01/20 07 11:53AM BY MICHELLE Gay NP, MEDICATI ON AUTO-GUALBERTO CTIVATIO N;1 EVERY 5 MINUTES X 3 THEN ER Not Available Not Available Not Available gabapenti n 300 mg capsule Take 1 capsule every day by oral route at bedtime for 30 days. 08/29 completed Not Available Not Available Not Available norethind jayna acetate 5 mg tablet Take 1 tablet twice a day by oral route as directed for 15 days. 09/26 completed prn menorrha nicolas Not Available Not Available Not Available gabapenti n 100 mg capsule TAKE 1 CAPSULE BY MOUTH THREE TIMES DAILY 02/18 completed Not Available Not Available Not Available iFerex 150 150 mg iron capsule TAKE 1 CAPSULE BY MOUTH TWICE DAILY 09/26 completed Not Available Not Available Not Available propranol ol 20 mg tablet TAKE 1 TO 2 tablets BY MOUTH TWICE DAILY NEEDED 09/26 completed Not Available Not Available Not Available sertralin e 50 mg tablet 1 TAB DAILY 01/06 completed RECORDED 01/06/20 13 4:10PM BY WAQAS BEARD MD, OFFICE VISIT; Not Available Not Available Not Available amoxicill in 500 mg-potass ium clavulana te 125 mg tablet 02/14 completed Not Available Not Available Not Available Sleep Aid (diphenhy dramine) 25 mg tablet Take 0.5 tablets as needed by oral route at bedtime. 02/11 completed Not Available Not Available Not Available coenzyme Q10 100 mg capsule DAILY 01/06 completed RECORDED 01/06/20 13 3:28PM BY DIAMANTE ALEXANDER MA, OFFICE VISIT; Not Available Not Available Not Available rosuvasta tin 5 mg tablet TAKE 1 TABLET BY MOUTH ONCE DAILY AT BEDTIME 09/18 completed Not Available Not Available Not Available rosuvasta tin 10 mg tablet TAKE 1 TABLET BY MOUTH EVERY NIGHT AT BEDTIME 04/04 completed Will increase to 20mg once done Not Available Not Available Not Available rosuvasta tin 20 mg tablet Take 1 tablet every day by oral route at bedtime for 90 days. active Not Available Not Available No t Available bupropion HCl XL 300 mg 24 hr tablet, extended release TAKE 1 TABLET BY MOUTH ONCE daily 01/24 completed Not Available Not Available Not Available bupropion HCl XL 150 mg 24 hr tablet, extended release TAKE 1 TABLET BY MOUTH ONCE DAILY 09/15 completed Not Available Not Available Not Available Sleep Aid (doxylami ne) 25 mg tablet Take 0.5 tablets as needed by oral route at bedtime. active not used daily Not Available Not Available Not Available nitrofura ntoin monohydra te/macroc rystals 100 mg capsule Take 1 capsule twice a day by oral route for 7 days. 02/11 completed Not Available Not Available Not Available chlorhexi dine gluconate 0.12 % mouthwash active Not Available Not Available No t Available Amoxil VINCE PRIOR TO PROCEDUR E 10/11 completed RECORDED 10/11/20 08 5:34PM BY RAHUL LONG, OFFICE VISIT; Not Available Not Available Not Available Fish Oil DAILY 01/06 completed RECORDED 01/06/20 13 3:27PM BY DIAMANTE ALEXANDER MA, OFFICE VISIT; Not Available Not Available Not Available Guiatuss AT BEDTIME 03/17 completed RECORDED 03/27/20 13 11:36AM BY JEANETTE IBARRA PA-C, MEDICATI ON AUTO-GUALBERTO CTIVATIO N; Not Available Not Available Not Available MetCresencio mcmillan 2 TIMES PER DAY FOR ACNE ROSACEA 07/07 completed RECORDED 07/07/20 13 5:01PM BY DIAMANTE ALEXANDER MA, OFFICE VISIT; Not Available Not Available Not Available peg 3350-elec trolytes 236 gram-22.7 4 gram-6.74 gram-5.86 gram solution drink 240 mL By Mouth Every 10 minutes active Not Available Not Available No t Available ZzzQuil 25 mg capsule Take 1 capsule every day by oral route at bedtime. active Not Available Not Available No t Available Xiidra 5 % eye drops in a dropperet te Instill 1 drop every 12 hours by ophthalm ic route as directed for 30 days, for dry eyes. active Not Available Not Available No t Available Flonase Sensimist 27.5 mcg/actua tion nasal spray,jorge pension Take 2 sprays every day by nasal route as needed for 30 days. 01/02 completed Not Available Not Available Not Available QuickVue At-Home COVID-19 Test kit USE DIRECTED 09/20 completed Not Available Not Available Not Available Vitals Date Recorded Body height Body mass index (BMI) Body weight Heart rate Oxygen saturation Oxygen saturation in Arterial blood by Pulse oximetry Body temperature Systolic blood pressure Diastolic blood pressure Provider Name and Address Organization Details Last Updated DateTime 3 177.17 cm 29 kg/m2 82702.0 7 g 76 /min 97 % 97 % 98.2 [degF] 124 mm[Hg] 70 mm[Hg] Scar goncalves MA [facility] 3 14:10:27 Date Recorded Body height Body mass index (BMI) Body weight Heart rate Oxygen saturation Oxygen saturation in Arterial blood by Pulse oximetry Body temperature Systolic blood pressure Diastolic blood pressure Provider Name and Address Organization Details Last Updated DateTime 3 177.17 cm 28.6 kg/m2 00326.2 9 g 75 /min 97 % 97 % 98.2 [degF] 156 mm[Hg] 79 mm[Hg] Sydnie Long MA [facility] 3 08:42:27 Date Recorded Body height Body mass index (BMI) Body weight Heart rate Oxygen saturation Oxygen saturation in Arterial blood by Pulse oximetry Body temperature Systolic blood pressure Diastolic blood pressure Provider Name and Address Organization Details Last Updated DateTime 4 177.17 cm 29.4 kg/m2 82842.0 5 g 73 /min 95 % 95 % 98.5 [degF] 131 mm[Hg] 74 mm[Hg] Jeanette Munguia MA [facility] 4 14:00:59 Date Recorded Body height Body mass index (BMI) Body weight Provider Name and Address Organization Details Last Updated DateTime 04/21/2024 177.17 cm 29.4 kg/m2 00216.05 g Abi Tyler MA [facility] 04/21/2024 15:50:47 Date Recorded Body height Body mass index (BMI) Body weight Oxygen saturation Oxygen saturation in Arterial blood by Pulse oximetry Heart rate Body temperature Systolic blood pressure Diastolic blood pressure Provider Name and Address Organization Details Last Updated DateTime 4 177.17 cm 27 kg/m2 09581.7 7 g 97 % 97 % 63 /min 97.5 [degF] 113 mm[Hg] 66 mm[Hg] Abi Tyler MA [facility] 4 14:02:37 Social History Question Answer Notes LastModified by Organizat ion Details LastModified Time Tobacco Smoking Status Former Smoker Kelsi coto [facility] 01/19/2015 14:24:03 Do You Have An Advance Directive? Yes HCP Information not available 04/04/2023 What Is Your Level Of Alcohol Consumption? Moderate 1-2 Daily Information not available 02/19/2024 Is Blood Transfusion Acceptable In An Emergency? Yes Information not available 01/20/2016 What Is Your Level Of Caffeine Consumption? Moderate Information not available 02/19/2024 How Much Tobacco Do You Chew? None Information not available 01/20/2016 Are You Currently Employed? Yes Information not available 01/19/2015 What Type Of Diet Are You Following? REGULAR Low Salt Intake Information not available 01/19/2015 Which Illicit Or Recreational Drugs Have You Used? None Information not available 01/20/2016 Do You Or Have You Ever Used E-cigarettes Or Vape? Never Used Electronic Cigarettes Information not available 04/04/2023 What Is Your Occupation? [employer] Information not available 01/20/2016 When Did You Quit Smoking? 6-10yearssinc [email or web address] Information not available 02/19/2024 Live Alone Or With Others? With Others (Eduardo) And Son [email or web address] Information not available 04/04/2023 Do You Take Precautions To Prevent Distracted Driving? Yes Information not available 01/20/2016 How Often Do You Need To Have Someone Help You When You Read Instructions, Pamphlets, Or Other Written Material From Your Doctor Or Pharmacy? Never Information not available 01/20/2016 Have You Served In The ? No Information not available 01/24/2017 Have You Or Anyone In Your Household Had Any Of The Following Symptoms In The Last 14 Days: Sore Throat, Cough, Chills, Body Aches For Unknown Reasons, Shortness Of Breath For Unknown Reasons, Loss Of Smell, Loss Of Taste, Fever At Or Greater Than 100 Degrees Fahrenheit? No Information not available 09/26/2020 Are You Or Anyone In Your Household A Health Care Provider Or Emergency Responder? No Information not available 09/26/2020 To The Best Of Your Knowledge Have You Been In Close Proximity To Any Individual Who Tested Positive For COVID-19? No Information not available 02/19/2024 Have You Recently Traveled To A COVID-19 High Risk Area Or Gathering In The Last 10 Days? No [email or web address] Information not available 06/13/2021 What Was The Date Of Your Most Recent Tobacco Screening? 02/19/2024 Information not available 02/19/2024 How Many Children Do You Have? 1 Chuck rios Information not available 01/19/2015 What Is Your Current Pack Years? 10packyears [email or web address] Information not available 04/04/2023 Do You Use Protection During Sex? No [email or web address] Information not available 10/24/2021 Do You Use Your Seat Belt Or Car Seat Routinely? Yes [email or web address] Information not available 10/24/2021 Seat Belts Used Routinely Yes [email or web address] Information not available 04/04/2023 Are You Sexually Active? No [email or web address] Information not available 04/04/2023 Smoke Alarm In Home Yes Information not available 04/04/2023 Do You Have Smoke And Carbon Monoxide Detectors In Your Home? No Information not available 02/19/2024 At What Age Did You Start Smoking Tobacco? 23 Quit At 46 Information not available 01/20/2016 Are You Passively Exposed To Smoke? No Information not available 09/26/2020 Do You Or Have You Ever Used Smokeless Tobacco? Never Used Smokeless Tobacco Information not available 09/26/2020 How Much Tobacco Do You Smoke? No Information not available 04/04/2023 Do You Use Any Illicit Or Recreational Drugs? No [email or web address] Information not available 04/04/2023 Do You Use Sunscreen Routinely? Yes Information not available 01/20/2016 How Many Years Have You Smoked Tobacco? 23 Information not available 09/26/2020 Do You Or Have You Ever Used Any Other Forms Of Tobacco Or Nicotine? No [email or web address] Information not available 04/04/2023 Sex: Unknown Functional Status Question Answer Note LastModified by Organization D etails LastModified Time Are you able to walk? YESWOREST [email or web address] Information not available 04/04/2023 Are you able to care for yourself? Yes Information not available 01/20/2016 What is your exercise level? Moderate Information not available 02/19/2024 Mental Status None recorded. Family History Relationship Description Onset Age of this Age Resolved Age Notes LastModified by Organization Details LastModified Time Maternal Grandmother Malignant neoplastic disease [email or web address] Not available 2015 16:08:06 Mother Hyperlipidem ia 70 [email or web address] Not available 2015 16:08:06 Medical History Condition Response Other N Gout N Kidney Stones N Blood Diseases N Hyperthyroidism N Breast Cancer N COPD N Depression Y Hypothyroidism N Lung Disease N Defects or Inherited Disease N Anesthesia Complications N Headaches/Migraines N Varicose Veins N Anxiety Disorder N Obesity Y Vision or Eye Problems N Arthritis N Head Injury/Concussion N Infertility N Polyps N Congenital Anomalies N Acid Reflux (GERD) N Cancer N Stroke N ADHD N Endometriosis N High Cholesterol N Liver Disease N Fibromyalgia N Kidney Disease N Heart Problems N Ear or Hearing Problems N Hospitalizations N Thyroid Problems Y GI Problems N Acne N Skin Problems N Eating Disorder N Anemia Y Constipation N Bladder Problems N Mental Illness N Ovarian Cancer N Diabetes N Blood Transfusions N Seizures/Epilepsy N Tuberculosis N AIDS/HIV N Congestive Heart Failure (CHF) N Eczema N Diverticulitis N Abuse/Domestic Violence N Asthma N Allergies N Reflux/GERD N Hepatitis N Pulmonary Embolism N Hypertension Y Osteoporosis N Chicken Pox N Autism Spectrum Disorder (ASD) N Gynecological History Statement/Question Response Date of Last Pap Smear 07/20/2021 Date of Last Colonoscopy 09/04/2018 Most Recent Mammogram 12/20/2023 Obstetrics History GPAL:G 0 P 0 0 0 0 Immunizations Vaccine Type Date Status Note Provider Nam e and Address Organization Details Recorded Time Td (adult) 12/01/20 07 completed Shelly coto [facility] 02/28/2015 14:14:38 COVID-19, mRNA, LNP-S, PF, 30 mcg/0.3 mL dose 03/11/20 21 completed RAHUL Copealnd [facility] 10/24/2021 15:34:15 COVID-19, mRNA, LNP-S, PF, 30 mcg/0.3 mL dose 04/02/20 21 completed RAHUL Copeland [facility] 10/24/2021 15:34:15 COVID-19, mRNA, LNP-S, PF, 100 mcg/0.5mL dose or 50 mcg/0.25mL dose 11/14/20 21 completed RAHUL Wise [facility] 01/02/2023 14:10:41 COVID-19, mRNA, LNP-S, PF, 30 mcg/0.3 mL dose 06/21/20 22 completed RAHUL Wise, [facility] 01/02/2023 14:10:41 zoster recombinant 03/22/20 23 completed RA[facility]UL [facility]hardwaj, [facility] 02/19/2024 13:55:59 Influenza, split virus, quadrivalent, PF 02/15/20 18 cancelled patient objection Not Available [facility] 12/19/2019 02:22:08 Influenza, split virus, quadrivalent, PF 09/26/20 20 completed RAHUL Wise, [facility] 09/26/2020 11:14:54 Influenza, split virus, quadrivalent, PF 10/24/20 21 completed RAHUL Talley, [facility] 10/24/2021 16:32:07 Tdap 01/12/20 14 completed Not Available [facility] 06/15/2014 14:00:52 Influenza, split virus, quadrivalent, PF 01/02/20 23 completed Sanju Son MD [address], [address], [facility] 01/02/2023 14:32:09 Past Encounters Encounter ID Performer Location Encounter Start Date Encounter Closed Date Diagnosis/Indication Diagnosis SNOMED-CT Code Diagnosis ICD10 Code [id number] [facility]Comm erce [id number] [facility] [place] [address] 01/21/2007 00:00:00 [id number] autoEComm erce [address] [facility] [place] [address] 02/25/2007 00:00:00 [id number] autoEComm erce [address] [facility] [place] [address] 10/11/2008 00:00:00 [id number] auto[facility]Comm erce [address] [facility] [place] [address] 02/17/2009 00:00:00 [id number] auto[facility]Comm erce [address] [place] [address] 09/28/2009 00:00:00 [id number] [address] [address] [address] [place] [address] 08/02/2011 00:00:00 [id number] auto[facility]Comm erce [address] [facility] [place] [address] 01/10/2012 00:00:00 [id number] autoEComm erce [address] [facility] [place] [address] 03/04/2012 00:00:00 [id number] auto[facility]Comm erce [address] [facility] [place] [address] 06/30/2012 00:00:00 [id number] autoEComm erce [address] [facility] [place] [address] 08/25/2012 00:00:00 [id number] autoEComm erce [address] [facility] [place] [address] 01/06/2013 00:00:00 [id number] autoEComm erce [address] [facility] [place] [address] 03/10/2013 00:00:00 [id number] autoEComm erce [address] [facility] [place] [address] 07/07/2013 00:00:00 [id number] autoEComm erce [address] [facility] [place] [address] 01/12/2014 00:00:00 [id number] Main Office [address] [place] [address] 01/19/2015 14:34:50 01/19/2015 15:19:25 Adult health examination [id number] [facility] 48504216 Essential hypertension 86554211 Hyperlipidemia 75406030 Fatigue 76891369 [id number] Waqas Beard MD Main Office [address] [facility] [address] [place] [address] 01/20/2016 15:18:41 01/20/2016 16:20:59 Adult health examination 864584093 Z00.00 Hypothyroidism 72030652 E03.9 Essential hypertension 71153688 I10 Obesity 059996074 E66.9 Screening for malignant neoplasm of cervix 481761566 Z12.4 Hyperglycemia 36906475 R 73.9 Hyperlipidemia 45830798 E78.5 Dysuria 81065992 R30.0 [id number] Waqas Beard MD Main Office [address] [address] 01/24/2017 15:01:01 01/24/2017 15:54:52 Adult health examination 546426141 Z00.00 Hypothyroidism 51774174 E03.9 Essential hypertension 99507853 I10 Hyperglycemia 07325552 R 73.9 Hyperlipidemia 33674153 E78.5 Major depr essive disorder 155276007 F32.9 Dystrophia unguium 92583 009 L60.3 [id number] Waqas Beard MD Main Office [address] [address] 04/12/2017 10:16:13 04/12/2017 11:16:21 Viral pharyngitis 1776059 B34.9 Cough 90482315 R05 Bacterial conjunctivitis 470551111 H10.9 [id number] Waqas Beard MD Main Office [address] [place] [address] 02/14/2018 15:13:59 02/14/2018 16:44:41 Screening for malignant neoplasm of breast 017544572 Z12.31 Essential hypertension 40780961 I10 Adult heal th examination 727729606 Z00.00 Immunization refused 275 062270 Z28.21 Major depr essive disorder 214458648 F32.9 Hand pain 36964711 M79.6 42 Restless legs 59305602 G 25.81 Bilateral tinnitus 29857 91911 102 H93.13 Hyperlipidemia 97032486 E78.5 Fatigue 87291306 R53.83 Screening for malignant neoplasm of colon 640028136 Z12.11 [id number] Paulino Blackmon MD Main Office [address] [place] [address] 04/02/2018 10:02:39 04/02/2018 10:56:22 Iron deficiency anemia 44404652 D50.9 Leukocytosis 139365192 D 72.829 Premenopau jorge alberto menorrhagia 05816160 N92.4 [id number] Waqas Beard MD Main Office [address] [address] [place] [address] 08/29/2018 14:25:46 08/29/2018 15:28:07 Essential hypertension 70213976 I10 Hypothyroidism 69148345 E03.9 Major depr essive disorder 109908201 F32.9 Iron defic iency anemia 47203253 D50.9 [id number] Waqas Beard MD Main Office [address] [address] [place] [address] 03/16/2019 15:12:40 03/16/2019 16:16:40 Adult health examination 636005439 Z00.00 Essential hypertension 01514004 I10 Iron defic iency anemia 75274322 D50.9 Hypothyroidism 76544465 E03.9 Major depr ession single episode, in partial remission 96273993 F32.4 Hyperlipidemia 72971374 E78.5 Chest pain on exertion 32801204 R07.89 [id number] Mingo Rodgers PA-C Main Office [address] [place] [address] 10/01/2019 14:48:07 10/01/2019 15:39:36 Essential hypertension 70579225 I10 Loss of hair 129464413 L 65.9 Iron defic iency anemia 72746185 D50.9 Impaired f asting glycemia 935608128 R73.01 Hypothyroidism 29471368 E03.9 Mixed hyperlipidemia 267 030029 E78.2 [id number] Waqas Beard MD Main Office [address] [address] [place] [address] 09/26/2020 10:42:57 09/26/2020 12:07:50 Adult health examination 422101856 Z00.00 Essential hypertension 31556878 I10 Hypothyroidism 07957116 E03.9 Needs infl uenza immunization 674334699 Z23 Major depr ession single episode, in partial remission 74103934 F32.4 Multiple joint pain 3567 8005 M25.50 [id number] Latonia Valles Main Office [address] [address] [place] [address] 06/13/2021 15:27:26 06/13/2021 16:18:55 Fatigue 96217986 R53.83 Hyperlipidemia 96991104 E78.5 Major depr ession single episode, in partial remission 16710387 F32.4 [id number] Sanju Son MD Main Office [address] [address] [place] [address] 10/24/2021 15:31:38 10/24/2021 16:35:06 Adult health examination 468628144 Z00.00 Varicella vaccination 68 702674 Z23 Needs infl uenza immunization 249701981 Z23 Hyperlipidemia 25557996 E78.5 Overweight 574217414 E66 .3 Body mass index 25-29 - overweight 936071366 Z68.29 Injury of right rotator cuff 4148497084 7050370 S46.001A [id number] ABDELRAHMAN CHAVEZ MD Main Office [address] [place] [address] 09/20/2022 09:02:02 09/20/2022 09:41:13 Acute urinary tract infection 506849151 N39.0 Weakness present 0234444 07 M62.81 Acute sinusitis 23390797 J01.90 History of SARS-CoV-2 29 26536825 34205077 Z86.16 [id number] Sanju Son MD Main Office [address] [address] [place] [address] 01/02/2023 13:58:33 01/02/2023 14:49:58 Adult health examination 893918584 Z00.00 Varicella vaccination 68 830382 Z23 Needs infl uenza immunization 980005685 Z23 Hyperlipidemia 24810307 E78.5 Overweight 467745290 E66 .3 Body mass index 25-29 - overweight 697013944 Z68.29 Fatigue 16312633 R53.83 Hypothyroidism 05344559 E03.9 Major depr ession single episode, in partial remission 70496833 F32.4 Dry eyes 369955779 H04.1 22 [id number] Mingo Rodgers PA-C Main Office [address] [place] [address] 04/04/2023 08:36:28 04/04/2023 09:49:32 Herpes zoster 9917303 B02.9 Leukopenia 88352071 D72. 819 Post-herpe tic neuritis 971167833 B02.29 [id number] Sanju Son MD Main Office [address] [address] [place] [address] 02/19/2024 13:51:44 02/19/2024 14:43:42 Adult health examination 301435087 Z00.00 Hyperlipidemia 20525905 E78.5 Overweight 645535411 E66 .3 Fatigue 51778542 R53.83 Hypothyroidism 43912982 E03.9 Major depr ession single episode, in partial remission 90412624 F32.4 Screening for malignant neoplasm of colon 680153167 Z12.11 Administra tion of diphtheria, pertussis, and tetanus vaccine 175537097 Z23 Administra tion of viral vaccine 59361241 Z29.11 Body mass index 25-29 - overweight 439935938 Z68.29 [id number] Sanju Son MD Main Office [address] [place] [address] [place] [address] 04/21/2024 15:22:11 04/22/2024 09:01:33 Overweight 391152038 E66.3 Body mass index 25-29 - overweight 377247025 E66.3 Z68.25 Subclinica l hyperthyroidism 943499369 E05.90 Leukopenia 94299526 D72. 819 Serum crea tinine above reference range 789743634 R79.89 [id number] Sanju Son MD Main Office [address] [place] [address] [place] [address] 09/18/2024 13:46:39 09/18/2024 14:30:41 Overweight [id number] E66.3 Body mass index 25-29 - overweight [id number] E66.3 Z68.25 External hemorrhoids [id number] K64.4 Health Concerns Section Related Observation LastModified by Organization Detai ls LastModified Time None Recorded Concern Status LastModified by Organization Details LastModified Time None Recorded Advance Directives Directive Y: HCP Payers Encounter Date Sequence Insurance Name Policy Number Policy Gardner Covered Member ID Gardner Member ID Guarantor Name 01/02/2023 1 [facility] Anusha A Stacey [id number] Anusha A Stacey 04/04/2023 1 [facility] Anusha A Stacey [id number] Anusha A Stacey 02/19/2024 1 [facility] Anusha A Stacey [id number] Anusha A Stacey 04/21/2024 1 [facility] Anusha A Stacey [id number] Anusha A Stacey 09/18/2024 1 [facility]) Anusha A Stacey [id number] Anusha A Stacey Notes Date Note Type Note Provider Name and Address Organization Details Recorded Time 01/02/20 23 text/htm l Anxiety/DepressionReported bypatient.Notes:see PHQ 9 scores. Doing well off of bupropion with stable mood symptoms.Dry EyeReported bypatient.Location:left Quality:itching. Onset/Timing:recurrent episode; 1 week Context:taking drops as indicated Modifying Factors:nothing gives relief Associated Symptoms:irritation; itchingHyperlipidemiaReported bypatient.Type of hyperlipidemia:combined Duration:chronic Control:usually well controlled; improving; at goal Compliance:compliant; compliant with diet; exercises Complications:no coronary artery disease; no peripheral artery disease; no cardiovascular disease Risk Factors:hypertensionHypertension F/UReported bypatient.Associated Symptoms:no dizziness; no lightheadedness; no chest pain; no palpitations; no edema; no calf pain with exertion; Home BP has been good. Lifestyle:regular exercise; limiting/avoiding salt Medications:taking medications as directed; no side effects from medicationNotes:Notes that home BP tends to be higher after work. reports good medication adherence. Here for PE visit. Reviewed chronic medications and medical problems. Discussed screening guidelines as well as goals for fitness and weight management. Notes to chronic dry eyes with itching, tried otc drops, Sanju Son MD [address] [address], [place], [phone], [facility] 01/02/2023 14:45:47 04/04/20 23 text/htm l Patient had the shingles vaccine 2 weeks a go on her left deltoid. She started noticing a rash on her arm and pain on the injection site. reviewed chartas per recent portal message:Dr. Son,I just need to run it by you. I received a shingle vaccination on March 15. I did not have any side effects until almost two weeks after. Around March 27 I started having a left arm shooting pain (that's the arm I got the injection in). On Thursday 03/29 the pain increased and I started feeling week and had shivers. I also developed rash and bums( not blisters) in different places on the upper left arm. They are still on my upper arm, some of them bigger some are small. They do not itch, they are a pinkish red color. It does not seem that they progressing to the forearm or any other parts of the body. Over the weekend I started having earache and then headaches. Earache went away but I still have a headache. The arm pain seems to be getting better. I feel much better but not completely. I eased on work and spent weekend in bed and try resting as much as I can.I am not sure if I should be concerned. Thank you. pt corrects above - rec'd shingles vaccine on 03.22.23 curr - feeling better, but lesions still present, and has mild skyes - no tyl or advil o/w feels well, denies stress recently --- just concerned about her L arm - more painful today than yesterday Mingo Rodgers PA-C [address] [address], [place], [phone], [facility] 04/04/2023 09:50:39 02/19/20 24 text/htm l Anxiety/DepressionReported bypatient.Notes:see PHQ 9 scores. Doing well off of bupropion with stable mood symptoms.Dry EyeReported bypatient.Location:left Quality:itching. Onset/Timing:recurrent episode; 1 week Context:taking drops as indicated Modifying Factors:nothing gives relief Associated Symptoms:irritation; itchingHyperlipidemiaReported bypatient.Type of hyperlipidemia:combined Duration:chronic Control:usually well controlled; improving; at goal Compliance:compliant; compliant with diet; exercises Complications:no coronary artery disease; no peripheral artery disease; no cardiovascular disease Risk Factors:hypertensionHypertension F/UReported bypatient.Associated Symptoms:no dizziness; no lightheadedness; no chest pain; no palpitations; no edema; no calf pain with exertion; Home BP has been good. Lifestyle:limiting/avoiding salt;not exercising regularly Medications:taking medications as directed; no side effects from medication Here for PE visit. Reviewed chronic medications and medical problems. Discussed screening guidelines as well as goals for fitness and weight management. Notes to chronic dry eyes with itching, tried otc drops, Sanju Son MD [address] [address], [place], [phone], [facility] 02/19/2024 14:39:53 04/21/20 24 text/htm l Follow up for weight, thyroid and labs. Sanju Son MD [address], [phone], [facility] 04/22/2024 06:41:59 04/21/20 24 text/htm l ObesityReported bypatient.Diagnosis Summary:age at start of weight gain 55; diagnosis: impaired fasting glucose; additional diagnosis: hypertension Context:no inhaled steroids; no oral steroids Associated Symptoms:no depression; no chronic illness; no Prader-Willi Syndrome; no hypothyroidism Co-morbidities:overweight/obese; impaired fasting glucose;hypertension Lifestyle changes:few constitutional symptoms related to diagnosis; no changes in living situation; motivated to continue lifestyle changes; exercising more;not losing weight Nutrition:restricting concentrated sugars Physical Activity:reported frequency of moderate level of physical activity per week: 1-2 days; weekly screen time (electronics) : 5 hours Medication Education:understands potential side effects; understands administration; understands role of diet as primary therapyThyroidReported bypatient.Context:no history of thyroid disease; no history of hyperthyroidism Exercisegets exercise Associated Symptoms:no cold intolerance; no heat intolerance; no double vision; no dry eyes; no neck masses; no deepening of the voice; no fast heart rate; no palpitations; no chest pain; no constipation; no diarrhea; no loose stoolsNotes:Possible exposure to radiation from [place] accident, lived 20 [place] from site. Sanju Son MD [address], [place], [phone], [facility] 04/22/2024 06:41:59 09/18/20 24 text/htm l ObesityReported bypatient.Diagnosis Summary:age at start of weight gain 55; diagnosis: impaired fasting glucose; additional diagnosis: hypertension Context:no inhaled steroids; no oral steroids Associated Symptoms:no depression; no chronic illness; no Prader-Willi Syndrome; no hypothyroidism Co-morbidities:overweight/obese; impaired fasting glucose;hypertension Lifestyle changes:few constitutional symptoms related to diagnosis; no changes in living situation; motivated to continue lifestyle changes; losing weight; exercising more Nutrition:restricting concentrated sugars Physical Activity:reported frequency of moderate level of physical activity per week: 1-2 days; weekly screen time ([employer]) : 5 hours Medication Education:understands potential side effects; understands administration; understands role of diet as primary therapyNotes:Follow up for weight she started naltrexone with bupropion but felt sick to her stomach and discontinued both. She does endorse though that the medicaiton cut her desire to drink etoh. The medication did motivate her to exercise and walk more while also eating healthier. She has lost ~16lb.ThyroidReported bypatient.Context:no history of thyroid disease; no history of hyperthyroidism Exercisegets exercise Associated Symptoms:no cold intolerance; no heat intolerance; no double vision; no dry eyes; no neck masses; no deepening of the voice; no fast heart rate; no palpitations; no chest pain; no constipation; no diarrhea; no loose stoolsNotes:Possible exposure to radiation from [place] accident, lived 20 km from site.Followed by endo recently had US, results pending. Follow up for weight.She also note exacerbation of her hemorrhoids. Sanju Son MD [address], [place], [address], [facility] 09/18/2024 17:59:32 OBGyn Episode No OBEpisode recorded.
--- OUTSIDE RECORDS SUMMARY | 2024-11-11 04:14 | XMS_ITS | Continuity of Care Document ---
Author Organization [facility], Main Office Address [address] [facility] [address] [place] [phone] Care Team Providers Care Knuckle Strap Sewer Name Role Phone SARAH ORTIZ Hand Wrapper Operator MARY CURTIS Fishery Division Chief JOSH VLILELA Office Copy Selector ROLANDO BRADLEY Office Copy Selector AMANDA VELAZQUEZ Track Repairer RE MARTINO Circle Saw Operator RUBY FRIAS Orthopedic Surgeon MONICA SON Primary Care Provider Assessment No assessment recorded. Plan of Treatment Reminders Order Date Submit Date Provider Last Modified By Organization Details Last Modified Time Details Appointments PE EST 2024 03:30P M Monica Son MD Not available Not available Not available Lab None recorded. Referral nutrition ist/dieti jing referral 2023 024 [email or web address] Not available 09/18/2024 15:27:43 Procedures None recorded. Surgeries None recorded. Imaging None recorded. Medication Orders compounde d medicatio n 2023 024 [facility], [facility], [address] [place] [address], [place], [address], 09/18/2024 14:29:48 Patient TargetsNo targets recorded. 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 [facility] (Medical Records) [address] [place], [address], 11/01/2024 14:05:42 Result Notes None recorded. Problems Name Problem SNOMED Code Status Onset Date Resolution Date Notes Provider Name and Address Organization Details Recorded Time Sprains and strains of joints and adjacent muscles Completed 201106/15/2014 RECORDED 08/25/20 12 12:51PM BY LEENA CAPPS MA, DIEUDONNE ON/ADDEN DUM Not Available [facility] 4 15:10:55 Disorder of joint of shoulder region 957051003 Completed 201302/19/2024 Monica Son MD [address] [facility] [address], [facility] [place], [address] , [facility] 4 14:12:54 Backache 984062233 Completed 201306/15/2014 RECORDED 01/12/20 14 4:02PM BY BROOKE FLORES MA, DIEUDONNE ON/ADDEN DUM Not Available [facility] 4 15:10:55 Acute sinusiti s 25094728 Completed 201106/15/2014 RECORDED 06/30/20 12 3:13PM BY BROOKE FLORES MA, ANNOTATI ON/ADDEN DUM Not Available [facility] 4 15:10:55 Adjustme nt disorder with anxious mood 82530503 Active 2013 RAHUL Persaud, [facility] 7 15:14:39 Adult health examinat ion Completed 201306/15/2014 RECORDED 01/12/20 14 4:02PM BY BROOKE FLORES MA, JOSE DATI ON/ADDEN DUM Latonia Valles chica, [facility] 1 11:29:35 Tobacco user [id number] Completed 201206/15/2014 RECORDED 07/07/20 13 4:57PM BY DIAMANTE ALEXANDER MA, ANNOTATI ON/ADDEN DUM RAHUL Persaud, [facility] 7 15:13:52 History of clinical finding in subject [id number] Completed 201201/24/2017 RAHUL Persaud, [facility] 7 15:14:29 Patient status finding 496762719 Completed 201206/15/2014 RECORDED 07/07/20 13 4:57PM BY DIAMANTE ALEXANDER MA, DIEUDONNE ON/ADDEN DUM Not Available [facility] 4 15:10:56 Pain in limb 14194787 Completed 201301/24/2017 RAHUL Persaud, [facility] 7 15:15:02 Elevated blood-pr essure reading without diagnosi s of hyperten perry 716303655 Completed 201306/15/2014 RECORDED 01/12/20 14 4:00PM BY BROOKE FLORES MA, JOSE DATI ON/ADDEN DUM Not Available [facility] 4 15:10:56 Screenin g for malignan t neoplasm of breast Completed 201106/15/2014 RECORDED 06/30/20 12 3:13PM BY BROOKE FLORES MA, ANNOTATI ON/ADDEN DUM Not Available [facility] 4 15:10:56 Screenin g for malignan t neoplasm of cervix Completed 201301/24/2017 RAHUL Persaud, [facility] 7 15:14:03 Screenin g for malignan t neoplasm of cervix Completed 201106/15/2014 RECORDED 06/30/20 12 3:13PM BY BROOKE FLORES MA, JOSE DATI ON/ADDEN DUM RAHUL Persaud, [facility] 7 15:14:03 Angina pectoris 592779719 Completed 201106/15/2014 RECORDED 08/27/20 12 11:35AM BY LEENA CAPPS MA, JOSE DATI ON/ADDEN DUM Not Available [facility] 4 15:10:56 Chest pain 95587039 Completed 201106/15/2014 IMPRESSI ON: PT WITH INTERMIT [...] CAPPS MA, ANNOTATI ON/ADDEN DUM Not Available [facility] 4 15:10:56 Screenin g for malignan t neoplasm of colon Completed 201306/15/2014 RECORDED 01/12/20 14 4:02PM BY BROOKE FLORES MA, ANNOTATI ON/ADDEN DUM Not Available [facility] 4 15:10:56 Cough 69777650 Completed 201206/15/2014 IMPRESSI ON: C/W VIRAL INFX., RECOMMEN D SUPPORTI VE TX INCL. REST/HYD RATION; RECORDED 07/07/20 13 4:57PM BY DIAMANTE ALEXANDER MA, ANNOTATI ON/ADDEN DUM Not Available [facility] 4 15:10:57 [facility] hyperten perry 55425097 Active 2013 STORY: STABLE IN PRE-HYPE RTENSIVE RANGE WITHOUT MEDS. RAHUL Persaud, [facility] 7 15:14:46 Malaise and fatigue 734958894 Completed 201106/15/2014 RECORDED 06/30/20 12 3:13PM BY BROOKE FLORES MA, ANNOTATI ON/ADDEN DUM Not Available [facility] 4 15:10:57 Hidraden itis 56611233 Completed 201302/19/2024 Monica Son MD [address] [facility] [place] [place] [address], [facility] [place], [address] , [facility] 4 14:13:18 Hyperlip idemia 04570869 Active 2013 RAHUL Persaud, [facility] 7 15:14:37 Hypothyr oidism 22169254 Active 2013 RAHUL Persaud, [facility] 7 15:14:22 Immuniza tion refused Completed 201301/24/2017 RECORDED 01/12/20 14 4:14PM BY BROOKE FLORES MA, OFFICE VISIT RAHUL Persaud, [facility] 7 15:14:13 Insomnia 720439760 Active 2013 RAHUL Persaud, [facility] 7 15:14:05 Major depressi on single episode, in partial remissio n 26218235 Active 2013 RAHUL Persaud, [facility] 7 15:14:49 Neck pain 45526453 Completed 201206/15/2014 RECORDED 07/07/20 13 4:57PM BY DIAMANTE ALEXANDER MA, DIEUDONNE ON/ADDEN DUM Not Available [facility] 4 15:10:57 Influenz a vaccine needed 05805521997 06 Completed 201106/15/2014 RECORDED 08/27/20 12 11:35AM BY LEENA CAPPS MA, DIEUDONNE ON/ADDEN DUM Not Available [facility] 4 15:10:57 Administ ration of tetanus vaccine Completed 201106/15/2014 RECORDED 06/30/20 12 3:13PM BY BROOKE FLORES MA, DIEUDONNE ON/ADDEN DUM Not Available [facility] 4 15:10:58 Obesity 638328511 Completed 201302/19/2024 Monica Son MD [address] [address], [place], [address] [facility] 4 14:14:42 Overweig ht 462877542 Active 2013 RAHUL Persaud, [facility] 7 15:14:07 Right upper quadrant pain 527106524 Completed 201106/15/2014 RECORDED 08/25/20 12 12:51PM BY LEENA CAPPS MA, ANNOTATI ON/ADDEN DUM RAHUL Persaud, [facility] 7 15:14:11 Right upper quadrant pain 101881887 Completed 201301/24/2017 RECORDED 01/12/20 14 5:02PM BY JOAQUIN BARRIOS MD, OFFICE VISIT RAHUL Persaud, [facility] 7 15:14:11 Rosacea 850317060 Completed 201206/15/2014 RECORDED 07/07/20 13 4:57PM BY DIAMANTE ALEXANDER MA, ANNOTATI ON/ADDEN DUM Not Available [facility] 4 15:10:58 Disorder of bursa of shoulder region 94769778 Completed 201106/15/2014 RECORDED 06/30/20 12 3:13PM BY BROOKE FLORES MA, ANNOTATI ON/ADDEN DUM Not Available [facility] 4 15:10:58 Varicose veins of lower extremit y 68541202 Active 2013 RAHUL Persaud, [facility] 7 15:14:52 Sprain of costal cartilag e Completed 201106/15/2014 RECORDED 06/30/20 12 3:13PM BY BROOKE FLORES MA, DIEUDONNE ON/ADDEN DUM Not Available [facility] 4 15:10:58 Administ ration of diphther ia, pertussi s, and tetanus vaccine Completed 201301/24/2017 RECORDED 01/12/20 14 4:14PM BY BROOKE FLORES MA, OFFICE VISIT RAHUL Persaud, [facility] 7 15:14:17 Musculos keletal disorder of the neck 921673105 Completed 201106/15/2014 RECORDED 06/30/20 12 3:13PM BY BROOKE FLORES MA, JOSE DATI ON/ADDEN DUM Not Available [facility] 4 15:10:58 Acute upper respirat ory infectio n 54631038 Completed 201106/15/2014 IMPRESSI ON: VIRAL MUCINEX, VOICE REST FOR THE HOARSE VOICE IF NOT IMPROVIN G IN 1 WEEK, CALL THE OFFICE; RECORDED 06/30/20 12 3:13PM BY BROOKE FLORES MA, ANNOTATI ON/ADDEN DUM Not Available [facility] 4 15:10:58 Exposure to organism Completed 201301/24/2017 RECORDED 01/12/20 14 5:15PM BY JOAQUIN BARRIOS MD, OFFICE VISIT RAHUL Persaud [facility] 7 15:14:34 Sprains and strains of joints and adjacent muscles Completed 201107/12/2014 RECORDED 08/25/20 12 12:51PM BY LEENA CAPPS MA, ANNOTATI ON/ADDEN DUM Not Available [facility] 4 05:42:26 Backache 834623041 Completed 201307/12/2014 RECORDED 01/12/20 14 4:02PM BY BROOKE FLORES MA, ANNOTATI ON/ADDEN DUM Not Available [facility] 4 05:42:26 Acute sinusiti s 50244830 Completed 201107/12/2014 RECORDED 06/30/20 12 3:13PM BY BROOKE FLORES MA, ANNOTATI ON/ADDEN DUM Not Available [facility] 4 05:42:26 Tobacco user 378358326 Completed 201207/12/2014 RECORDED 07/07/20 13 4:57PM BY DIAMANTE ALEXANDER MA, DIEUDONNE ON/ADDEN DUM RAHUL Persaud [facility] 7 15:13:52 Patient status finding 657214375 Completed 201207/12/2014 RECORDED 07/07/20 13 4:57PM BY DIAMANTE ALEXANDER MA, DIEUDONNE ON/ADDEN DUM Not Available [facility] 4 05:42:27 Elevated blood-pr essure reading without diagnosi s of hyperten perry 157806461 Completed 201307/12/2014 RECORDED 01/12/20 14 4:00PM BY BROOKE FLORES MA, DIEUDONNE ON/ADDEN DUM Not Available [facility] 4 05:42:27 Screenin g for malignan t neoplasm of breast Completed 201107/12/2014 RECORDED 06/30/20 12 3:13PM BY BROOKE FLORES MA, ANNOTATI ON/ADDEN DUM Not Available [facility] 4 05:42:27 Angina pectoris 677322258 Completed 201107/12/2014 RECORDED 08/27/20 12 11:35AM BY LEENA CAPPS MA, JOSE DATI ON/ADDEN DUM Not Available [facility] 4 05:42:27 Chest pain 92094353 Completed 201107/12/2014 IMPRESSI ON: PT WITH INTERMIT [...] MA, JOSE DATI ON/ADDEN DUM Not Available [facility] 4 05:42:27 Screenin g for malignan t neoplasm of colon Completed 201307/12/2014 RECORDED 01/12/20 14 4:02PM BY BROOKE FLORES MA, DIEUDONNE ON/ADDEN DUM Not Available [facility] 4 05:42:27 Cough 74300497 Completed 201207/12/2014 IMPRESSI ON: C/W VIRAL INFX., RECOMMEN D SUPPORTI VE TX INCL. REST/HYD RATION; RECORDED 07/07/20 13 4:57PM BY DIAMANTE ALEXANDER MA, DIEUDONNE ON/ADDEN DUM Not Available [facility] 4 05:42:27 Malaise and fatigue 473142716 Completed 201107/12/2014 RECORDED 06/30/20 12 3:13PM BY BROOKE FLORES MA, JOSE DATI ON/ADDEN DUM Not Available [facility] 4 05:42:27 Neck pain 17076111 Completed 201207/12/2014 RECORDED 07/07/20 13 4:57PM BY DIAMANTE ALEXANDER MA, ANNOTATI ON/ADDEN DUM Not Available [facility] 4 05:42:27 Influenz a vaccine needed 85594518117 06 Completed 201107/12/2014 RECORDED 08/27/20 12 11:35AM BY LEENA CAPPS MA, ANNOTATI ON/ADDEN DUM Not Available [facility] 4 05:42:27 Administ ration of tetanus vaccine Completed 201107/12/2014 RECORDED 06/30/20 12 3:13PM BY BROOKE FLORES MA, ANNOTATI ON/ADDEN DUM Not Available [facility] 4 05:42:27 Right upper quadrant pain 047649596 Completed 201107/12/2014 RECORDED 08/25/20 12 12:51PM BY LEENA CAPPS MA, ANNOTATI ON/ADDEN DUM RAHUL Persaud MA [facility] 7 15:14:11 Rosacea 191135792 Completed 201207/12/2014 RECORDED 07/07/20 13 4:57PM BY DIAMANTE ALEXANDER MA, ANNOTATI ON/ADDEN DUM Not Available [facility] 4 05:42:27 Disorder of bursa of shoulder region 22078156 Completed 201107/12/2014 RECORDED 06/30/20 12 3:13PM BY BROOKE FLORES MA, ANNOTATI ON/ADDEN DUM Not Available [facility] 4 05:42:27 Sprain of costal cartilag e Completed 201107/12/2014 RECORDED 06/30/20 12 3:13PM BY BROOKE FLORES MA, ANNOTATI ON/ADDEN DUM Not Available [facility] 4 05:42:27 Musculos keletal disorder of the neck 109380310 Completed 201107/12/2014 RECORDED 06/30/20 12 3:13PM BY BROOKE FLORES MA, ANNOTATI ON/ADDEN DUM Not Available [facility] 4 05:42:27 Acute upper respirat ory infectio n 86166874 Completed 201107/12/2014 IMPRESSI ON: VIRAL MUCINEX, VOICE REST FOR THE HOARSE VOICE IF NOT IMPROVIN G IN 1 WEEK, CALL THE OFFICE; RECORDED 06/30/20 12 3:13PM BY BROOKE FLORES MA, ANNOTATI ON/ADDEN DUM Not Available [facility] 4 05:42:27 Fatigue 82611310 Completed 01/24/2017 RAHUL Persaud, [facility] 7 15:14:58 Dysuria 90714403 Completed 01/24/2017 RAHUL Persaud, [facility] 7 15:14:41 Hypergly cemia 10319020 Completed 02/19/2024 Monica Son MD [address], [place], [address] , [facility] 4 14:29:40 Ex-smoke r 6729889 Active 2016 RAHUL Persaud, [facility] 7 15:13:58 Iron deficien cy anemia 71004838 Completed 201702/19/2024 Monica Son MD [address], [place], [address] , [facility] 4 14:14:03 Problem Notes None recorded. Procedures Surgical History Date Name Laterality Status Provider Name and Address Organization Details Recorded Time 08/27/20 24 Colonoscopy completed Abi Tyler MA [facility] 09/18/2024 13:55:55 12/20/19 24 Most Recent Mammogram completed Letha Ward [facility] 12/23/2023 09:28:30 10/19/20 22 Mammogram both breasts completed Brooke ochoa MA [facility] 01/02/2023 14:13:12 07/20/20 21 Date of Last Pap Smear completed Brooke ochoa MA [facility] 01/02/2023 14:13:25 09/04/20 18 Date of Last Colonoscopy completed Landy Blankenship [facility] 09/04/2018 11:43:43 09/04/20 Colonoscopy completed Landy Blankenship [facility] 09/04/2018 11:43:38 09/04/20 18 Egd diagnostic brush wash completed [facility] 09/04/2018 11:44:00 Imaging Results None recorded. Procedure Notes None recorded. Medical Equipment None Reported. Allergies Allergen ID Allergen Name Allergen Category Reaction Reaction Severity Criticality Documentation Date Start Date Code Code System Note Provider Name and Address Organization Details Recorded Time 14985 amlodipin e medicatio n edema Not available Not available 10/06/2019 01820 RxNorm [facility] 13:55:45 Medications Name Sig Start Date Stop [...] 02/22 completed RECORDED 04/05/20 09 11:16AM BY JOAQUIN BARRIOS MD, MEDICATI ON AUTO-GUALBERTO CTIVATIO N; Not [...] 2007 active RECORDED 09/28/20 09 9:40AM BY JOAQUIN BARRIOS MD, ANNOTATI ON/ADDEN DUM; Not Available Not [...] completed RECORDED 07/01/20 07 11:53AM BY MICHELLE Khalil NP, MEDICATI ON AUTO-GUALBERTO CTIVATIO N;1 EVERY [...] 01/06 completed RECORDED 01/06/20 13 4:10PM BY JOAQUIN BARRIOS MD, OFFICE VISIT; Not Available Not Available [...] 03/17 completed RECORDED 03/27/20 13 11:36AM BY ALEX IBARRA PA-C, MEDICATI ON AUTO-GUALBERTO CTIVATIO N; Not Available Not Available Not Available [facility] 2 TIMES PER DAY FOR ACNE ROSACEA [...] Updated DateTime 4 177.17 cm 27 kg/m2 05446.7 7 g 97 % 97 % 63 /min 97.5 [degF] 113 mm[Hg] 66 mm[Hg] Abi Tyler MA [facility] 4 14:02:37 Social History Question Answer Notes LastModified by Organizat ion Details LastModified Time Tobacco Smoking Status Former Smoker [facility]2015 14:24:03 Do You Have An Advance Directive? Yes HCP [email or web address] Information not available 04/04/2023 What Is Your [...] E-cigarettes Or Vape? Never Used Electronic Cigarettes [email or web address] Information not available 04/04/2023 What Is Your Occupation? [employer] Information not available 01/20/2016 When Did You Quit Smoking? 6-10yearssinc [email or web address] e Information not available 02/19/2024 Live Alone Or With Others? With Others (Eduardo) And Son [email or web address] Information not available 04/04/2023 Do You Take [...] Gathering In The Last 10 Days? No [email or web address] Information not available 06/13/2021 What Was The Date Of Your Most Recent Tobacco Screening? 02/19/2024 Information not available 02/19/2024 How Many Children Do You Have? 1 Chuck [email or web address] Information not available 01/19/2015 What Is Your Current Pack Years? [email or web address] Information not available 04/04/2023 Do You Use Protection During Sex? No Information not available 10/24/2021 Do You Use Your Seat Belt Or Car Seat Routinely? Yes Information not available 10/24/2021 Seat Belts Used Routinely Yes Information not available 04/04/2023 Are You Sexually Active? No [email or web address] Information not available 04/04/2023 Smoke Alarm In Home Yes [email or web address] Information not available 04/04/2023 Do You Have [...] How Much Tobacco Do You Smoke? No [email or web address] Information not available 04/04/2023 Do You Use Any Illicit Or Recreational Drugs? No [email or web address] Information not available 04/04/2023 Do You Use Sunscreen Routinely? Yes Information not available 01/20/2016 How Many Years Have You Smoked Tobacco? 23 Information not available 09/26/2020 Do You Or Have You Ever Used Any Other Forms Of Tobacco Or Nicotine? No [email or web address] Information not available 04/04/2023 Sex: Unknown Functional Status Question Answer Note LastModified by Organization D etails LastModified Time Are you able to walk? [email or web address] Information not available 04/04/2023 Are you able [...] Td (adult) 12/01/20 07 completed Shelly coto [facility] 02/28/2015 14:14:38 COVID-19, mRNA, LNP-S, PF, 30 mcg/0.3 mL dose 03/11/20 21 completed RAHUL Copeland [facility] 10/24/2021 15:34:15 COVID-19, mRNA, LNP-S, PF, 30 mcg/0.3 mL dose 04/02/20 21 completed RAHUL Copeland [facility] 10/24/2021 15:34:15 COVID-19, mRNA, LNP-S, PF, 100 mcg/0.5mL dose or 50 mcg/0.25mL dose 11/14/20 21 completed RAHUL Wise [facility] 01/02/2023 14:10:41 COVID-19, mRNA, LNP-S, PF, 30 mcg/0.3 mL dose 06/21/20 22 completed RAHUL Wise [facility] 01/02/2023 14:10:41 zoster recombinant 03/22/20 23 completed [facility]UL [facility] 02/19/2024 13:55:59 Influenza, split virus, quadrivalent, PF 02/15/20 18 cancelled patient objection Not Available [facility] 12/19/2019 02:22:08 Influenza, split virus, quadrivalent, PF 09/26/20 20 completed RAHUL Wise [facility] 09/26/2020 11:14:54 Influenza, split virus, quadrivalent, PF 10/24/20 21 completed RAHUL Talley, [facility] 10/24/2021 16:32:07 Tdap 01/12/20 14 completed Not Available [facility] 06/15/2014 14:00:52 Influenza, split virus, quadrivalent, PF 01/02/20 23 completed Monica Son MD [address] [facility] [place] [place] [address], [place], [address], [facility] 01/02/2023 14:32:09 Past Encounters Encounter ID Performer Location Encounter Start Date Encounter Closed Date Diagnosis/Indication Diagnosis SNOMED-CT Code Diagnosis ICD10 Code [id number] Monica Son MD Main Office [address] [facility] [address] [facility] [id number] 09/18/2024 13:46:39 09/18/2024 14:30:41 Overweight 547275648 E66.3 Body mass index 25-29 - overweight 041807236 E66.3 Z68.25 External hemorrhoids 239 58647 K64.4 Health Concerns Section Related Observation LastModified by Organization Detai ls LastModified Time None Recorded Concern Status LastModified by Organization Details LastModified Time None Recorded Payers Encounter Date Sequence Insurance Name Policy Number Policy Gardner Covered Member ID Gardner Member ID Guarantor Name 09/18/2024 1 [facility] Anusha Ibarra [id number] Anusha Ibarra Notes Date Note Type Note Provider Name and Address Organization Details Recorded Time 09/18/2024 text/html ObesityReported bypatient.Diagnosis Summary:age at start of weight gain 55; diagnosis: impaired fasting glucose; additional diagnosis: hypertension Context:no inhaled steroids; no oral steroids Associated Symptoms:no depression; no chronic illness; no Prader-Willi Syndrome; no hypothyroidism Co-morbidities:overwe ight/obese;impaired fasting glucose;hypertension Lifestyle changes:few constitutional symptoms related [...] weight.She also note exacerbation of her hemorrhoids. Monica Son MD [address] [address], [place], [address], [place] [facility] 09/18/2024 17:59:32 OBGyn Episode No OBEpisode recorded.
== END 2024-11-05 15:30 | disposition home or self-care (01) ==
PROVIDERS: PCP Family Medicine; Visit Provider Student in an Organized Health Care Education/Training Program
DX: E05.90 Thyrotoxicosis, unspecified without thyrotoxic crisis or storm (principal)
CPT/HCPCS: 99213